=== PATIENT | male | born 1975 | race Caucasian/White ===

== ENCOUNTER 2018-09-29 14:34 | Emergency (ER) | payer OTHER ==
[~2018-09-29] VITALS: Ht 182.9 cm; Wt 68.0 kg
[2018-09-29] MEDS ORDERED: IV NORMAL SALINE 1,000ML 1,000 ML IV SCH (14:55)
--- NOTE | 2018-09-29 15:03 | PHYS DOC ---
Past History Past Medical History: No Pertinent History Past Surgical History: No Surgical History Smoking: Cigarettes Additional Smoking Information: 1 PPD Alcohol Use: Heavy Drug Use: None Adult General Chief Complaint Chief Complaint: nausea and vomiting and abdominal pain [facility] HPI Patient is a 43 year old male who presents with complaining of abdominal pain and nausea and vomiting and diarrhea. Patient complaining of episodes of nausea and vomiting with upper abdominal pain for 2 months and states he usually gets one or 2 episodes of vomiting in the morning. Patient complaining of intermittent episodes of tightness in the upper abdomen for the same time and he states he has had 4 episodes of diarrhea for the last few days. Patient complaining of generalized weakness without fever and chills, chest pain, shortness of breath, urinary symptom. Patient states he drinks 4-5 shots of hard daycare every day for the last 2 years and has had alcohol problem since age of 22s. Patient denies melena and hematemesis and states he lost 3 pounds since his last emergency room visit one week ago. Patient states he was seen by his primary care physician and has appointment for CT of abdomen and pelvis on October 18 and seen at [facility] emergency without and and answering his questions about the reason of his pain and decided to come to emergency room to find out that what was wrong with him. Patient states he had 2 shots of alcohol today. Review of Systems Review of Systems Constitutional: Denies fever or chills [] Eyes: Denies change in visual acuity, redness, or eye pain [] HENT: Denies nasal congestion or sore throat [] Respiratory: Denies cough or shortness of breath [] Cardiovascular: No additional information not addressed in [facility] [] GI: Reports abdominal pain, nausea, vomiting, diarrhea [] : Denies dysuria or hematuria [] Musculoskeletal: Denies back pain or joint pain [] Integument: Denies rash or skin lesions [] Neurologic: Denies headache, focal weakness or sensory changes [] Endocrine: Denies polyuria or polydipsia [] All other systems were reviewed and found to be within normal limits, except as documented in this note. Physical Exam Physical Exam Constitutional: Well developed, well nourished, mild distress, non-toxic appearance, smell of alcohol on breath. [] HENT: Normocephalic, atraumatic, oropharynx moist. Eyes: PERRLA, EOMI, conjunctiva normal, no discharge. [] Neck: Normal range of motion, no tenderness, supple, no stridor. [] Cardiovascular:Heart rate regular rhythm, no murmur [] Lungs & Thorax: Bilateral breath sounds clear to auscultation [] Abdomen: Bowel sounds normal, soft, no tenderness, no masses, no pulsatile masses. [] Skin: Warm, dry, no erythema, no rash. [] Back: No tenderness, no CVA tenderness. [] Extremities: No tenderness, no cyanosis, no clubbing, ROM intact, no edema. [] Neurologic: Alert and oriented X 3, normal motor function, normal sensory function, no focal deficits noted. [] Psychologic: Affect normal, judgement normal, mood normal. [] Current Patient Data Vital Signs Vital Signs Date Time Temp Pulse Resp B/P (MAP) Pulse Ox O2 Delivery O2 Flow Rate FiO2 09/29/18 14:38 97.8 112 20 90 Room Air EKG EKG [] Radiology/Procedures Radiology/Procedures [] Course & Med Decision Making Course & Med Decision Making Pertinent Labs reviewed. (See chart for details) Evaluation of patient in ER showed 43-year-old male patient with multiple chronic complaint and history of alcohol abuse. Patient had blood alcohol of 238 with unremarkable labs except for elevation of liver function tests. Patient had multiple visits in other places because of the same problem. Patient has appointment for CT of abdomen and pelvis. Patient instructed to follow up with his appointment and stop drinking alcohol. Dragon Disclaimer Dragon Disclaimer This electronic medical record was generated, in whole or in part, using a voice recognition dictation system. Departure Departure: Impression: Primary Impression: Chronic liver disease Additional Impressions: Chronic alcoholic liver disease Chronic abdominal pain Nausea and vomiting Tobacco abuse Tobacco abuse counseling Alcohol abuse Disposition: HOME, SELF-CARE (at) Condition: STABLE Patient Instructions: Alcoholic Liver Disease, [id number], Chronic Pain, Nausea and Vomiting, Smoking Cessation, Tips For Success Additional Instructions: Drink plenty of liquids Follow-up with your primary care physician in 3-5 days Return to ER if not getting better Follow-up with your scheduled outpatient CT of abdomen and pelvis Scripts Ondansetron Hcl (ZOFRAN) 4 Mg Tablet 1 TAB PO Q6HRS for nausea and vomiting, #12 TAB Prov: MEG MARROQUNI MD 09/29/18 Problem Qualifiers Additional Impressions: Nausea and vomiting Vomiting type: unspecified MEG MARROQUIN MD Sep 29, 2018 15:03
[2018-09-29 15:06] LABS: BASO # 0.2 x10^3/uL (0.0-0.2); BASO % 2 % (0-3); EOS # 0.2 x10^3/uL (0.0-0.7); EOS % 2 % (0-3); HEMATOCRIT 50.1 % (39.0-53.0); HEMOGLOBIN 16.9 g/dL (13.0-17.5); LYMPH # 2.5 x10^3/uL (1.0-4.8); LYMPH % 26 % (24-48); MEAN CORPUSCULAR HEMOGLOBIN 34 pg (25-35); MEAN CORPUSCULAR HGB CONC 34 g/dL (31-37); MEAN CORPUSCULAR VOLUME 99 fL (79-100); MONO # 0.9 x10^3/uL (0.0-1.1); MONO % 9 % (0-9); NEUT # 5.9 x10^3uL (1.8-7.7); NEUT % 61 % (31-73); PLATELET COUNT 117 x10^3/uL (140-400); RED BLOOD COUNT 5.04 x10^6/uL (4.30-5.70); RED CELL DISTRIBUTION WIDTH 14.9 % (11.5-14.5); WHITE BLOOD COUNT 9.7 x10^3/uL (4.0-11.0)
[2018-09-29 15:16] LABS: ALBUMIN 3.8 g/dL (3.4-5.0); ALBUMIN/GLOBULIN RATIO 1.1 (1.0-1.7); CALCIUM 8.7 mg/dL (8.5-10.1); CREATININE 0.6 mg/dL (0.7-1.3); GFR 148.5; POTASSIUM 3.7 mmol/L (3.5-5.1); TOTAL BILIRUBIN 0.6 mg/dL (0.2-1.0); TOTAL PROTEIN 7.2 g/dL (6.4-8.2)
[2018-09-29] MEDS ORDERED: FAMOTIDINE 20 MG/2 ML VIAL IVP ONE (15:30)
[2018-09-29] MEDS ORDERED: ONDANSETRON PF 4 MG/2 ML VIAL. IV ONE (15:30)
[2018-09-29 16:54] LABS: BARBITURATES NEG (NEG); BENZODIAZEPINES NEG (NEG); CANNABINOIDS NEG (NEG); COCAINE NEG (NEG); METHADONE NEG (NEG); OPIATES NEG (NEG); PHENCYCLIDINE NEG (NEG)
[2018-09-29 17:01] LABS: AMPHETAMINE/METHAMPHETAMINE NEG (NEG)
[2018-09-29 17:07] VITALS: BP 129/79
[2018-09-29 17:07] LABS: BILIRUBIN,URINE NEG (NEG); CLARITY,URINE CLEAR; COLOR,URINE YELLOW; GLUCOSE,URINE NEG (NEG)
[2018-09-29 17:08] LABS: BACTERIA,URINE FEW /HPF (0-FEW); NITRITE,URINE NEG (NEG); SQUAMOUS EPITHELIAL CELL,UR FEW /LPF; UROBILINOGEN,URINE 0.2 mg/dL (0.2 mg/dL)
[2018-09-29] MEDS ORDERED: ONDA4TAB7 PO (17:13)
== END 2018-09-29 17:22 | disposition home or self-care (01) ==
LOC: ER 14:34
DX: K70.9 Alcoholic liver disease, unspecified (principal); G89.29 Other chronic pain; R10.9 Unspecified abdominal pain; R11.2 Nausea with vomiting, unspecified; F17.210 Nicotine dependence, cigarettes, uncomplicated; F10.10 Alcohol abuse, uncomplicated; Z71.6 Tobacco abuse counseling; Y90.8 Blood alcohol level of 240 mg/100 ml or more
CPT/HCPCS: 36415; 80053; 80307; 81001; 83690; 85025; 85610; 85730; 96374; 96375; 99284; G0480; J2405; J3490; J7030

== ENCOUNTER 2020-05-20 15:54 | Inpatient (IN) | payer SELFPAY ==
[~2020-05-20] VITALS: Ht 182.9 cm; Wt 64.5 kg
[~2020-05-20 15:54] MED LIST: ONDA4TAB7 PO
--- NOTE | 2020-05-20 16:17 | PHYS DOC ---
Past History Past Medical History: No Pertinent History (JIMMY KATHLEEN MD) Past Surgical History: No Surgical History (JIMMY KATHLEEN MD) Smoking: Cigarettes Alcohol Use: Heavy Drug Use: None (JIMMY KATHLEEN MD) General Adult EDM: Chief Complaint: LOSS OF CONSCIOUSNESS HPI: HPI: Patient is a 44-year-old Male who presents for evaluation following an episode of loss of consciousness. Patient has a history of alcohol withdrawal seizures and last drink was yesterday but he is also been sick for last week with subjective fevers chills and a cough. Patient had an episode where he lost consciousness today and did not know whether he there was seizure activity. Patient complains of head and neck pain where he hit his head. Patient also has had nausea vomiting and diarrhea as well as some diffuse abdominal discomfort. Patient also complains of cough and shortness of breath. (JIMMY KATHLEEN MD) Review of Systems: Review of Systems: Constitutional: Complains of subjective fevers and chills Eyes: Denies change in visual acuity HENT: Denies nasal congestion or sore throat Respiratory: Complains of cough and shortness of breath Cardiovascular: Denies chest pain or edema GI: Complains of abdominal pain, nausea, vomiting, diarrhea : Denies dysuria Musculoskeletal: Denies back pain but has neck pain Integument: Denies rash Neurologic: Complains of headache but no focal weakness or sensory changes Endocrine: Denies polyuria or polydipsia Lymphatic: Denies swollen glands Psychiatric: Denies depression or anxiety (JIMMY KATHLEEN MD) Current Medications: Current Meds: Current Medications Multivitamins/ Minerals 10 ml/ Folic Acid 1 mg/ Thiamine HCl 100 mg/Lactated Ringer's 1,011.3 ml @ 1,011.3 mls/hr 1X ONCE IV Last administered on 05/20/20at 17:24; Start 05/20/20 at 17:00; Stop 05/20/20 at 17:59 Lorazepam (Ativan Inj) 2 mg 1X ONCE IVP ; Start 05/20/20 at 17:45; Stop 05/20/20 at 17:46 Piperacillin Sod/ Tazobactam Sod 3.375 gm/Sodium Chloride 50 ml @ 100 mls/hr 1X ONCE IV ; Start 05/20/20 at 17:45; Stop 05/20/20 at 18:14 Iohexol (Omnipaque 350 Mg/ml) 100 ml 1X ONCE IV ; Start 05/20/20 at 17:45; Stop 05/20/20 at 17:46; Status UNV Sodium Chloride 50 ml @ As Directed STK-MED ONCE .ROUTE ; Start 05/20/20 at 17:39; Stop 05/20/20 at 17:39; Status DC Piperacillin Sod/ Tazobactam Sod (Zosyn) 3.375 gm STK-MED ONCE IV ; Start 05/20/20 at 17:39; Stop 05/20/20 at 17:39; Status DC Active Scripts Active Zofran (Ondansetron Hcl) 4 Mg Tablet 1 Tab PO Q6HRS (JIMMY KATHLEEN MD) Allergies: Allergies: Allergies Coded Allergies Type Severity Reaction Last Updated Verified No Known Allergies Allergy Unknown 05/20/20 Yes (JIMMY KATHLEEN MD) Physical Exam: PE: Constitutional: Well developed, well nourished, no acute distress, non-toxic appearance. [] HENT: Normocephalic, atraumatic, bilateral external ears normal, no trismus nose normal. [] Eyes: PERRLA, EOMI, conjunctiva normal, no discharge. [] Neck: Mild posterior tenderness, supple, no stridor. [] Cardiovascular: Tachycardia, peripheral pulse intact, cap refill is brisk Lungs & Thorax: Diminished breath sounds bilaterally Abdomen soft with mild diffuse tenderness without guarding or rebound, no masses, no pulsatile masses. [] Skin: Warm, dry, no erythema, no rash. [] Back: No tenderness, no CVA tenderness. [] Extremities: No tenderness, no cyanosis, no clubbing, ROM intact, no edema. [] Neurologic: Alert and oriented X 3, normal motor function, normal sensory function, no focal deficits noted. [] Psychologic: Affect normal, judgement normal, mood normal. [] (JIMMY KATHLEEN MD) Current Patient Data: Labs: Laboratory Tests Test 05/20/20 16:15 White Blood Count 5.1 x10^3/uL Red Blood Count 4.48 x10^6/uL Hemoglobin 15.4 g/dL Hematocrit 46.4 % Mean Corpuscular Volume 104 fL Mean Corpuscular Hemoglobin 34 pg Mean Corpuscular Hemoglobin Concent 33 g/dL Red Cell Distribution Width 15.5 % Platelet Count 65 x10^3/uL Neutrophils (%) (Auto) 69 % Lymphocytes (%) (Auto) 16 % Monocytes (%) (Auto) 13 % Eosinophils (%) (Auto) 2 % Basophils (%) (Auto) 1 % Neutrophils # (Auto) 3.5 x10^3uL Lymphocytes # (Auto) 0.8 x10^3/uL Monocytes # (Auto) 0.6 x10^3/uL Eosinophils # (Auto) 0.1 x10^3/uL Basophils # (Auto) 0.0 x10^3/uL D-Dimer (Haylie) 2.89 mg/L Sodium Level 139 mmol/L Potassium Level 3.6 mmol/L Chloride Level 96 mmol/L Carbon Dioxide Level 20 mmol/L Anion Gap 23 Blood Urea Nitrogen 14 mg/dL Creatinine 0.7 mg/dL Estimated GFR (Cockcroft-Gault) 123.7 BUN/Creatinine Ratio 20 Glucose Level 68 mg/dL Lactic Acid Level 6.6 mmol/L Calcium Level 8.5 mg/dL Total Bilirubin 0.4 mg/dL Aspartate Amino Transf (AST/SGOT) 143 U/L Alanine Aminotransferase (ALT/SGPT) 63 U/L Alkaline Phosphatase 66 U/L Lactate Dehydrogenase 170 U/L Troponin I Quantitative < 0.017 ng/mL C-Reactive Protein 4.7 mg/L Total Protein 6.7 g/dL Albumin 3.4 g/dL Albumin/Globulin Ratio 1.0 Lipase 157 U/L Ethyl Alcohol Level 163 mg/dL Current Medications Medications (Trade) Dose Ordered Sig/Donnie Route PRN Reason Start Time Stop Time Status Last Admin Dose Admin Multivitamins/ Minerals 10 ml/ Folic Acid 1 mg/ Thiamine HCl 100 mg/Lactated Ringer's 1,011.3 ml @ 1,011.3 mls/hr 1X ONCE IV 05/20/20 17:00 05/20/20 17:59 05/20/20 17:24 Lorazepam (Ativan Inj) 2 mg 1X ONCE IVP 05/20/20 17:45 05/20/20 17:46 Piperacillin Sod/ Tazobactam Sod 3.375 gm/Sodium Chloride 50 ml @ 100 mls/hr 1X ONCE IV 05/20/20 17:45 05/20/20 18:14 Iohexol (Omnipaque 350 Mg/ml) 100 ml 1X ONCE IV 05/20/20 17:45 05/20/20 17:46 UNV Sodium Chloride 50 ml @ As Directed STK-MED ONCE .ROUTE 05/20/20 17:39 05/20/20 17:39 DC Piperacillin Sod/ Tazobactam Sod (Zosyn) 3.375 gm STK-MED ONCE IV 05/20/20 17:39 05/20/20 17:39 DC Vital Signs: Vital Signs Date Time Temp Pulse Resp B/P (MAP) Pulse Ox O2 Delivery O2 Flow Rate FiO2 05/20/20 15:54 98.1 98 14 142/93 (109) 93 Room Air (JIMMY KATHLEEN MD) EKG: EKG: [] EKG interpreted by me normal sinus rhythm with rate of 99 normal axis normal intervals normal ST segments (JIMMY KATHLEEN MD) Radiology/Procedures: Radiology/Procedures: [][place] [address] IMAGING REPORT Signed PATIENT: FRANK SALINAS ACCOUNT: [id number] : 1975 LOCATION: ER AGE: 44 SEX: M EXAM STATUS: REG ER ORD. PHYSICIAN: JIMMY KATHLEEN MD REASON: syncope, head injury PROCEDURE: CT HEAD AND CERVICAL SPINE WO Exam: CT head and cervical spine INDICATION: Syncope, head injury TECHNIQUE: Sequential axial images through the head and cervical spine were obtained without the administration of IV contrast. Comparisons: None FINDINGS: Head: No focal parenchymal lesion or hemorrhage is identified. There is no midline shift or sulcal effacement. No acute vascular territory infarction is identified. Ryan-white distinction is preserved. The ventricular system is within normal limits without compression hydrocephalus. The basal cisterns are well maintained. The visualized portions of the paranasal sinuses and mastoid air cells are well-pneumatized. No acute fractures. Cervical spine: Vertebral body heights and alignment are well-maintained. Fracture to the cervical spine is not identified. Mild multilevel spondylotic change in cervical spine with degenerative disc disease greatest at C4-C5 and C5-C6. Visualized paraspinal soft tissues are unremarkable. IMPRESSION: 1. No acute intracranial abnormality. 2. Negative CT C-spine for acute traumatic injury. Exposure: One or more of the following in the visualized dose reduction techniques were utilized for this examination: 1. Automated exposure control 2. Adjustment of the MA and/or KV according to patient size Use of iterative of reconstructive technique Electronically signed by: Jaci Cowart MD (05/20/2020 5:04 PM) [facility] DICTATED AND SIGNED BY: JACI COWART MD DATE: 05/20/20 1704 CC: JIMMY KATHLEEN MD; JESUS HERNANDEZ MD ~ [address] [address] IMAGING REPORT Signed PATIENT: FRANK SALINAS ACCOUNT: [id number] : 1975 LOCATION: ER AGE: 44 SEX: M EXAM STATUS: PRE ER ORD. PHYSICIAN: JIMMY KATHLEEN MD REASON: syncope, cough, shortness of breath, hx smoker PROCEDURE: PORTABLE CHEST 1V PORTABLE CHEST 1V Clinical History: Reason: syncope, cough, shortness of breath, hx smoker / Spl. Instructions: / History: Technique: AP view of the chest was obtained at 05/20/2020 4:08 PM. Comparison: None. Findings: The cardiomediastinal silhouette is normal. The pulmonary vasculature is normal. The lungs and pleural margins are clear. Impression: No evidence of an acute cardiopulmonary process. Electronically signed by: Frank Brown III, MD (05/20/2020 4:47 PM) [facility] DICTATED AND SIGNED BY: FRANK BROWN III, MD DATE: 05/20/20 1647 CC: JIMMY KATHLEEN MD; JESUS HERNANDEZ MD ~ (JIMMY KATHLEEN MD) Heart Score: Risk Factors: Risk Factors: DM, Current or recent (<one month) smoker, HTN, HLP, family history of CAD, obesity. Risk Scores: Score 0 - 3: 2.5% MACE over next 6 weeks - Discharge Home Score 4 - 6: 20.3% MACE over next 6 weeks - Admit for Clinical Observation Score 7 - 10: 72.7% MACE over next 6 weeks - Early Invasive Strategies (JIMMY KATHLEEN MD) Course & Med Decision Making: Course & Med Decision Making Pertinent Labs and Imaging studies reviewed. (See chart for details) [] 44-year-old male presents with an episode of altered mental status which was due to either syncope or seizure. Patient also has had symptoms concerning for COVID-19 recently and has some abdominal pain. Patient has elevated lactic acid at 6.6, this could be due to seizure or infectious process. Patient will be given fluids via banana bag due to his alcoholism and a CT angiogram of the chest has been ordered due to his elevated D-dimer and I will continue to the abdomen pelvis to rule out serious intra-abdominal pathology. Patient underwent a CT of the head and neck due to seizure versus syncope and also neck pain. Patient was signed over to Dr. Gillette with follow-up on the CT of the chest abdomen pelvis and disposition pending. (JIMMY KATHLEEN MD) Course & Med Decision Making Assumed care of patient from prior emergency room physician. At checkout CT chest and pelvis was pending. There is no signs of bowel necrosis at this time. Lactic did increase and fluids were increased. This may be due to his alcohol withdrawal. Is also possible that he is coronavirus. He will be admitted to his primary care physician for alcohol withdrawal with possible PUI. (JOSE GILLETTE MD) Dragon Disclaimer: Dragon Disclaimer: This electronic medical record was generated, in whole or in part, using a voice recognition dictation system. (JIMMY KATHLEEN MD) Departure Departure: Impression: Primary Impression: Syncope Additional Impressions: Alcohol intoxication Dyspnea Elevated d-dimer Abdominal pain Lactic acidosis Disposition: ADMITTED INPT THIS HOSP Condition: STABLE Referrals: JESUS HERNANDEZ MD (PCP) JIMMY KATHLEEN MD May 20, 2020 16:16 JOSE GILLETTE MD May 20, 2020 22:56
--- NOTE | 2020-05-20 16:50 | RAD ---
PORTABLE CHEST 1V Clinical History: Reason: syncope, cough, shortness of breath, hx smoker / Spl. Instructions: / History: Technique: AP view of the chest was obtained at 05/20/2020 4:08 PM. Comparison: None. Findings: The cardiomediastinal silhouette is normal. The pulmonary vasculature is normal. The lungs and pleural margins are clear. Impression: No evidence of an acute cardiopulmonary process. Electronically signed by: Cuong Dewitt III, MD (05/20/2020 4:47 PM) [facility]
[2020-05-20 16:51] LABS: BASO % 1 % (0-3); EOS # 0.1 x10^3/uL (0.0-0.7); EOS % 2 % (0-3); HEMATOCRIT 46.4 % (39.0-53.0); HEMOGLOBIN 15.4 g/dL (13.0-17.5); LYMPH # 0.8 x10^3/uL (1.0-4.8); LYMPH % 16 % (24-48); MEAN CORPUSCULAR HEMOGLOBIN 34 pg (25-35); MEAN CORPUSCULAR HGB CONC 33 g/dL (31-37); MEAN CORPUSCULAR VOLUME 104 fL (79-100); MONO # 0.6 x10^3/uL (0.0-1.1); MONO % 13 % (0-9); NEUT # 3.5 x10^3uL (1.8-7.7); NEUT % 69 % (31-73); PLATELET COUNT 65 x10^3/uL (140-400); RED BLOOD COUNT 4.48 x10^6/uL (4.30-5.70); RED CELL DISTRIBUTION WIDTH 15.5 % (11.5-14.5); WHITE BLOOD COUNT 5.1 x10^3/uL (4.0-11.0)
[2020-05-20 16:52] LABS: CALCIUM 8.5 mg/dL (8.5-10.1); CREATININE 0.7 mg/dL (0.7-1.3); GFR 123.7; POTASSIUM 3.6 mmol/L (3.5-5.1)
[2020-05-20 16:58] LABS: ALBUMIN 3.4 g/dL (3.4-5.0); C REACTIVE PROTEIN 4.7 mg/L (0-3.3); TOTAL BILIRUBIN 0.4 mg/dL (0.2-1.0); TOTAL PROTEIN 6.7 g/dL (6.4-8.2)
[2020-05-20] MEDS ORDERED: MVI, ADULT NO.4 WITH VIT K 10 ML, FOLIC ACID INJ 1 MG, THIAMINE INJ 100 MG in IV RINGER... IV ONE (17:00)
--- NOTE | 2020-05-20 17:07 | RAD ---
Exam: CT head and cervical spine INDICATION: Syncope, head injury TECHNIQUE: Sequential axial images through the head and cervical spine were obtained without the administration of IV contrast. Comparisons: None FINDINGS: Head: No focal parenchymal lesion or hemorrhage is identified. There is no midline shift or sulcal effacement. No acute vascular territory infarction is identified. Ryan-white distinction is preserved. The ventricular system is within normal limits without compression hydrocephalus. The basal cisterns are well maintained. The visualized portions of the paranasal sinuses and mastoid air cells are well-pneumatized. No acute fractures. Cervical spine: Vertebral body heights and alignment are well-maintained. Fracture to the cervical spine is not identified. Mild multilevel spondylotic change in cervical spine with degenerative disc disease greatest at C4-C5 and C5-C6. Visualized paraspinal soft tissues are unremarkable. IMPRESSION: 1. No acute intracranial abnormality. 2. Negative CT C-spine for acute traumatic injury. Exposure: One or more of the following in the visualized dose reduction techniques were utilized for this examination: 1. Automated exposure control 2. Adjustment of the MA and/or KV according to patient size Use of iterative of reconstructive technique Electronically signed by: Jaci Hinojosa MD (05/20/2020 5:04 PM) [facility]
--- NOTE | 2020-05-20 17:33 | EKG ---
[address] [address] Test Date: 2020-05-20 Test Time: 16:11:27 Pat Name: FRANK SALINAS Department: Room: Gender: M Serials Librarian: CHRISTINE : 1975 Requested By: JIMMY KATHLEEN Order Number: [id number] Reading MD: Measurements Intervals [place] Rate: 99 P: 62 MO: 142 QRS: 65 QRSD: 80 T: 60 QT: 348 QTc: 452 Interpretive Statements SINUS RHYTHM NORMAL ECG RI6.02 No previous ECG available for comparison
[2020-05-20] MEDS ORDERED: IV NORMAL SALINE 50ML 50 ML ONE (17:39)
[2020-05-20] MEDS ORDERED: PIPERACILLIN/TAZOBACTAM 3.375 GM VIAL IV ONE (17:39)
[2020-05-20] MEDS ORDERED: PIPERACILLIN/TAZOBACTAM 3.375 GM in IV NORMAL SALINE 50ML 50 ML IV ONE (17:45)
[2020-05-20] MEDS ORDERED: IOHEXOL 350 MG/ML 100 ML VIAL. IV ONE (18:00)
[2020-05-20] MEDS ORDERED: CONTRAST GIVEN. MC PRN (18:00)
--- NOTE | 2020-05-20 18:40 | RAD ---
Exam: CT of chest, abdomen and pelvis with contrast INDICATION: Syncope, cough, shortness of air TECHNIQUE: Sequential axial images through the chest, abdomen and pelvis obtained following the administration of 100 mL of Omni 350 IV contrast. Sagittal and coronal reformatted images were reconstructed from the axial data and reviewed. 3-D reformatted images were reconstructed from the axial data and reviewed. Comparisons: Chest x-ray same day FINDINGS: Visualized portions of the thyroid are unremarkable. No enlarged mediastinal lymph nodes are identified. Heart size is normal. No pericardial effusion. Thoracic aorta has a normal course and caliber. Pulmonary artery is not enlarged. No pulmonary embolus identified within the main, lobar or segmental pulmonary arteries. Airways are patent. Mild bronchial wall thickening noted centrally. No consolidation or pneumothorax. Innumerable micronodules diffusely present throughout the lungs. No pleural effusion or thickening. Diffuse hepatic steatosis. Spleen, pancreas and adrenals are unremarkable. Gallbladder is nondistended. Kidneys demonstrate symmetric enhancement. No perinephric inflammation or hydronephrosis. No renal or ureteral calculi are identified. Bladder is partially distended and not well evaluated. Prostate is not enlarged. Scattered diverticulosis at the sigmoid colon without evidence of acute diverticulitis. Appendix is normal. No free intra-abdominal air or fluid. No obstruction. Abdominal aorta aorta has a normal course and caliber. Abdominal vasculature is patent. No enlarged abdominal lymph nodes are identified. No suspicious osseous lesions or acute fractures. IMPRESSION: 1. Subtle diffuse micronodularity throughout the lungs. This is nonspecific in etiology and may simply represent improved resolution of small vessels versus a atypical infectious or inflammatory process. Short-term follow-up imaging is recommended to reassess. 2. No pulmonary embolus identified within the main, lobar or segmental pulmonary arteries. 3. Diverticulosis without evidence of acute diverticulitis. 4. Diffuse hepatic steatosis. Exposure: One or more of the following in the visualized dose reduction techniques were utilized for this examination: 1. Automated exposure control 2. Adjustment of the MA and/or KV according to patient size 3. Use of iterative of reconstructive technique Electronically signed by: Jaci Hinojosa MD (05/20/2020 6:37 PM) [facility]
[2020-05-20] MEDS ORDERED: IV NORMAL SALINE 1,000ML 1,000 ML IV ONE ×2 (20:30→21:15)
[2020-05-20] MEDS ORDERED: chlordiazePOXIDE HCL 25 MG CAPSULE PO ONE (20:45)
[2020-05-20] MEDS ORDERED: NORMAL SALINE IV SCH (21:33)
--- NOTE | 2020-05-20 21:40 | NUR ---
ADMISSION PT ARRIVED TO ICU BED 5 VIA [facility], ACCOMPANIED BY [facility] AND ED STAFF. PT TRANSFERRED FROM [facility] TO BED X2 ASSIST. PT HERE FOR ETOH WITHDRAWAL AND COVID PUI. PT A/OX3, FLAT AFFECT. PT REPORTS HIS LAST DRINK WAS TUESDAY EVENING AND HE FELL THIS AFTERNOON WHILE ATTEMPTING TO GET UP TO USE THE RESTROOM. FALL WAS UNWITNESSED AND PT BELIEVES HE LOST CONSCIOUSNESS AND IS UNSURE IF HE HAD A SEIZURE. PT REPORTS HX OF DETOX SEIZURES. BED RAILS PADDED FOR SAFETY. PT ALSO REPORTS FEVER/CHILLS AND COUGH X1 WEEK. TESTED FOR COVID BASED ON SYMPTOMS, SWAB OBTAINED IN ED. PT IN CONTACT AND AIRBORNE ISOLATION PENDING RESULT. PT A POOR HISTORIAN. DECLINES FAMILY NOTIFICATION OF ADMISSION. PT RESIDES AT HOME WITH A ROOMMATE. PT HAS A LARGE BACKPACK FULL OF CLOTHING AND PERSONAL BELONGINGS, INVENTORIED AND LEFT AT THE BEDSIDE WITH THE PT. LOVENOX FOR VTE. BANANA BAG INFUSING. POC DISCUSSED WITH PT, V/U. CALL LIGHT IN REACH.
[2020-05-20] MEDS ORDERED: IV NORMAL SALINE 1,000ML 1,000 ML IV SCH (21:45)
--- NOTE | 2020-05-20 21:45 | NUR ---
POSITIVE SEVERE SEPSIS SCREEN DR. HERNANDEZ NOTIFIED OF POSITIVE SCREEN. PT WITH LACTIC ACID OF 6.6 AND 8.7 UPON REPEAT. MD ORDERED FOR WEIGHT BASED FLUID BOLUS 30ML/KG, ZOSYN AND ZITHROMAX. BLOOD CULTURES WERE DRAWN IN ED, PENDING. WILL REPEAT LACTIC ACID A THIRD TIME WITH MORNING LABS.
[2020-05-20] MEDS ORDERED: MAG HYDROX/AL HYDROX/SIMETH 30 ML ORAL.SUSP PO PRN (22:00)
[2020-05-20] MEDS ORDERED: PIP/TAZO PER PHARMACY MC PRN (22:00)
[2020-05-20] MEDS ORDERED: PIPERACILLIN/TAZOBACTAM 4.5 GM in IV NORMAL SALINE 50ML 50 ML IV SCH (22:00)
[2020-05-20 22:19] VITALS: BP 131/89
[2020-05-20] MEDS ORDERED: AZITHROMYCIN 250 MG TABLET. PO ONE (22:30)
[2020-05-20] MEDS ORDERED: ENOXAPARIN 40 MG/0.4 ML SYRINGE. SQ ONE (22:30)
[2020-05-20] MEDS ORDERED: THIAMINE 100 MG TABLET. PO ONE (22:30)
[2020-05-20] MEDS: PIPERACILLIN/TAZOBACTAM 3.375 GM in IV NORMAL SALINE 50ML 50 ML IV SCH (23:07)
[2020-05-20 23:19] VITALS: BP 131/76
[2020-05-21] VITALS (13 sets, daily range): BP systolic 116–152; BP diastolic 44–97
[2020-05-21] MEDS: IV 1/2 NORMAL SALINE 1,000 ML IV SCH ×2 (01:20→11:03)
[2020-05-21] MEDS ORDERED: LORA-254 PO (04:57)
[2020-05-21] MEDS: PIPERACILLIN/TAZOBACTAM 3.375 GM in IV NORMAL SALINE 50ML 50 ML IV SCH ×2 (05:22→12:57)
[2020-05-21 06:06] LABS: BASO # 0.1 x10^3/uL (0.0-0.2); BASO % 1 % (0-3); EOS # 0.2 x10^3/uL (0.0-0.7); EOS % 3 % (0-3); HEMATOCRIT 38.2 % (39.0-53.0); HEMOGLOBIN 12.8 g/dL (13.0-17.5); LYMPH # 1.3 x10^3/uL (1.0-4.8); LYMPH % 19 % (24-48); MEAN CORPUSCULAR HEMOGLOBIN 34 pg (25-35); MEAN CORPUSCULAR HGB CONC 34 g/dL (31-37); MEAN CORPUSCULAR VOLUME 103 fL (79-100); MONO % 15 % (0-9); NEUT # 4.1 x10^3uL (1.8-7.7); NEUT % 62 % (31-73); PLATELET COUNT 50 x10^3/uL (140-400); RED BLOOD COUNT 3.73 x10^6/uL (4.30-5.70); RED CELL DISTRIBUTION WIDTH 15.2 % (11.5-14.5); WHITE BLOOD COUNT 6.5 x10^3/uL (4.0-11.0)
[2020-05-21 06:17] LABS: ALBUMIN 2.9 g/dL (3.4-5.0); CALCIUM 8.2 mg/dL (8.5-10.1); CREATININE 0.6 mg/dL (0.7-1.3); DIRECT BILIRUBIN 0.3 mg/dL (0.0-0.2); GFR 147.8; POTASSIUM 3.9 mmol/L (3.5-5.1); TOTAL BILIRUBIN 0.6 mg/dL (0.2-1.0); TOTAL PROTEIN 5.6 g/dL (6.4-8.2)
--- NOTE | 2020-05-21 06:45 | NUR ---
Pt c/o throbbing headache this AM. Rates 9:10. Pt does not have anything ordered for pain. Calls placed to Dr. Santizo, L/M x2. Awaiting call back.
[2020-05-21 06:53] LABS: PLT ESTIMATE DECREASED (ADEQUATE)
[2020-05-21 06:54] LABS: TARGET CELLS OCC
[2020-05-21 06:56] LABS: ANISOCYTOSIS SLIGHT; POLYCHROMASIA SLIGHT
--- NOTE | 2020-05-21 07:07 | NUR ---
Call back received from Dr. Santizo. New orders received for pain and anxiety.
[2020-05-21] MEDS ORDERED: ACETAMINOPHEN 325 MG TABLET PO PRN (07:15)
[2020-05-21] MEDS ORDERED: PANTOPRAZOLE 40 MG TABLET. PO SCH (07:30)
--- NOTE | 2020-05-21 08:37 | NUR ---
IP: patient PUI for COVID-19, requires contact and airborne precautions.
[2020-05-21] MEDS: chlordiazePOXIDE HCL 25 MG CAPSULE PO SCH ×2 (08:48→13:39)
[2020-05-21] MEDS ORDERED: cloNIDine TTS-1 1 PATCH PATCH TD SCH (09:00)
[2020-05-21] MEDS ORDERED: NICOTINE 21MG PATCH. TD SCH (09:00)
[2020-05-21] MEDS ORDERED: CHLO25CA9 PO (12:48)
[2020-05-21] MEDS ORDERED: Nicotine 21MG Patch TD (12:48)
[2020-05-21] MEDS ORDERED: FLU VACC QS 2020-21(6MOS+)/PF 0.5 ML SYRINGE. VAX IM ONE (13:15)
--- NOTE | 2020-05-21 14:16 | NUR ---
NURSING NOTE: DISCHARGE PT DISCHARGED VIA AMBULATION. PT TOOK TAXI HOME. WRITTEN AND VERBAL DISCHARGE INSTRUCTIONS GIVEN, VERBAL UNDERSTANDING RECEIVED. PT GIVEN RX FOR NICOTINE PATCH AND LIBRIUM 25MG. PT HAD NO QUESTIONS. GIL CAMACHO
--- NOTE | 2020-05-21 17:51 | HP ---
ADMIT DATE: 05/20/2020 HISTORY OF PRESENT ILLNESS: A 44-year-old male came in through the Emergency Room, apparently he was quite liberated and alcohol level greater than 300. He has had a previous history of alcohol withdrawal seizures and patient notes he had a loss of consciousness from drinking so much. The patient noted he also had some nausea, vomiting and diarrhea, diffuse abdominal discomfort. He was seen initially in the Emergency Room where a thorough workup had been performed on the gentleman and the patient's CT scan showed some diverticulosis and hepatic steatosis, but otherwise basically unremarkable there. The patient was admitted for detox of his alcohol. PAST MEDICAL HISTORY: Cerebral hematoma, alcohol withdrawal, COPD, Tse's esophagus. SOCIAL HISTORY: He drinks about a pint of hard liquor daily, smokes a pack of cigarettes daily and influenza last fall. ALLERGIES: No known allergies. FAMILY HISTORY: Unremarkable. The patient's social history is as noted above and he is a full code. REVIEW OF SYSTEMS: The patient does not feel good. He is nauseated, diarrhea. Denies any melena, hematochezia, hematemesis. Denies chest pain, shortness of breath. Neurologically stable and he has not had any further seizure activity. PHYSICAL EXAMINATION: VITAL SIGNS: The patient's blood pressure 150/44, respiratory rate 22, blood pressure came down to 120/88, pulse 70, 98.4, and oxygen saturation at 95%. HEENT: The patient's head was atraumatic, normocephalic. Eyes: PERRLA without jaundice. The mouth and throat were normal. NECK: Supple, without JVD or thyromegaly. LUNGS: Diminished, but clear. CARDIOVASCULAR: Regular sinus rhythm. ABDOMEN: Soft, nontender. EXTREMITIES: No clubbing, cyanosis, nor edema. NEUROLOGIC: The patient at this time was alert and oriented. Speech is fluent, spontaneous, appropriate. LABORATORY DATA: White count 6.5, hemoglobin 12.8 and hematocrit 32. MCV elevated at 103. The patient's chemistries show lactic acid, but I think that was from his alcoholism and the like. COVID-19 was negative. The patient made excellent progress during his hospitalization. IMPRESSION: Alcohol withdrawal, history of seizure activity from alcohol withdrawal. We will make further evaluation on him as an outpatient. He was told to follow up and make further assessment at that time. JESUS HERNANDEZ MD DR: ANDREEA/shivam JOB#: [id number] / [id number]
[2020-05-21] MEDS ORDERED: AZITHROMYCIN 250 MG TABLET. PO SCH (21:00)
[2020-05-21] MEDS ORDERED: LACTOBACILLUS RHAMNOSUS GG 1 CAPSULE. PO SCH (21:00)
[2020-05-21] MEDS ORDERED: ENOXAPARIN 40 MG/0.4 ML SYRINGE. SQ SCH (22:00)
== END 2020-05-21 14:19 | disposition home or self-care (01) | DRG 897 ==
LOC: ER 15:54 → ICU 20:55
PROVIDERS: ADMIT Family Medicine; ATTEND Family Medicine
DX: F10.239 Alcohol dependence with withdrawal, unspecified (principal); E87.2 Acidosis; K76.0 Fatty (change of) liver, not elsewhere classified; J44.9 Chronic obstructive pulmonary disease, unspecified; K57.90 Diverticulosis of intestine, part unspecified, without perforation or abscess without bleeding; Z20.828 Contact with and (suspected) exposure to other viral communicable diseases; Z87.891 Personal history of nicotine dependence
CPT/HCPCS: 36415; 70450; 71045; 71275; 72125; 74177; 80048; 80053; 80076; 83605; 83615; 83690; 84484; 85025; 85379; 86140; 87040; 90471; 93005; 96365; 96366; 96368; 96375; G0480; J0456; J1650; J2060; J2543; J7030; J7120; Q9967; U0003; 90686; 99285-25

== ENCOUNTER 2020-05-21 19:33 | Emergency (ER) | payer SELFPAY ==
[~2020-05-21] VITALS: Ht 182.9 cm; Wt 64.5 kg
[~2020-05-21 19:33] MED LIST changes: +CHLO25CA9 PO; +LORA-254 PO; +Nicotine 21MG Patch TD
--- NOTE | 2020-05-21 19:55 | PHYS DOC ---
Past History Past Medical History: COPD, Stroke Additional Past Medical Histor: cerebral hematoma, barrets esophagus, etoh abuse Past Surgical History: No Surgical History Smoking: Cigarettes Alcohol Use: Heavy Drug Use: None General Adult EDM: Chief Complaint: MECHANICAL FALL HPI: HPI: History of pain for the patient. Patient is a 44-year-old male with a history of alcohol abuse who presents with chief complaint of falls. He states he has been drinking today. He states he has had multiple falls. He notes that he recently fell injuring his knees and left elbow. He states he is able to ambulate although it is somewhat difficult because he feels unsteady on his feet. Denies loss of consciousness. I striking his head. Denies using any blood thinners. States that he last drank approximate 30 minutes prior to arrival. Unable to estimate how much he is doing today. States he was discharged home from our facility today for alcohol detoxification. He states he has no interested alcohol detoxification today. Denies any suicidal homicida l ideations. Denies any other drug abuse. States the pain is aching in his knees and left elbow. States ambulation makes the pain worse. Pain is 4-10. No other complaints. Review of Systems: Review of Systems: Constitutional: Denies fever or chills Eyes: Denies change in visual acuity HENT: Denies nasal congestion or sore throat Respiratory: Denies cough or shortness of breath Cardiovascular: Denies chest pain or edema GI: Denies abdominal pain, nausea, vomiting, bloody stools or diarrhea : Denies dysuria Musculoskeletal: Positive for knee pain and fall. Integument: Denies rash Neurologic: Denies headache, focal weakness or sensory changes Endocrine: Denies polyuria or polydipsia Lymphatic: Denies swollen glands Psychiatric: Denies depression or anxiety Allergies: Allergies: Allergies Coded Allergies Type Severity Reaction Last Updated Verified No Known Allergies Allergy Unknown 05/20/20 Yes Physical Exam: PE: Physical Exam Trauma: Primary Survey: Airway: Intact. Speaks in normal voice and phonation. Breathing: Breath sounds are clear and equal bilaterally. Circulation: Regular rhythm, 2+ and symmetric radial, DP and PT pulses. Disability: GCS on arrival was 15. Pupils 3 mm, ERRL Exposure: Complete exposure obtained and described in detail below. Secondary Survey: General: Awake, alert, appropriate, and in no acute distress HENT: Atraumatic. TMs clear bilaterally, no hemotympanum. No periorbital tenderness or deformity. No obvious craniofacial trauma. Midface is stable. No apparent dental or tongue/oropharyngeal injury. No septal hematoma. Neck: C-spine: no midline tenderness. Without step-off, deformity, abrasion, ecchymosis, or other signs of trauma. Paraspinal musculature with no tenderness and/or hypertonicity. Eyes: Pupils 3 mm ERRL, EOMI grossly, no evidence of ocular trauma, conjunctivae normal Respiratory: CTAB without wheezing, rhonchi, or rales. No distress. Chest wall with no tenderness to palpation. No crepitus, ecchymosis, or flail segment present. Cardiovascular: Regular rhythm without murmurs noted. 2+ and symmetric radial, DP and PT pulses. GI: Soft, non-tender, non-distended Musculoskeletal: T-spine: no midline tenderness. Without step-off, deformity, abrasion, ecchymosis, or other signs of trauma. Paraspinal musculature with no tenderness and/or hypertonicity. L-spine: no midline tenderness. Without step-off, deformity, abrasion, ecchymosis, or other signs of trauma. Paraspinal musculature with no tenderness and/or hypertonicity. RUE: Active ROM, no obvious deformity, no gross weakness or sensory deficits, warm & well-perfused LUE: Active ROM, no obvious deformity, no gross weakness or sensory deficits, warm & well-perfused RLE: Active ROM, no obvious deformity, no gross weakness or sensory deficits, warm & well-perfused LLE: Active ROM, no obvious deformity, no gross weakness or sensory deficits, warm & well-perfused Integument: Without abrasions, contusions, or lacerations. Neurologic: GCS on arrival as noted above. No obvious focal motor or sensory deficits on examination. Gait not assessed due to acuity of trauma assessment. Current Patient Data: Vital Signs: Vital Signs Date Time Temp Pulse Resp B/P (MAP) Pulse Ox O2 Delivery O2 Flow Rate FiO2 05/21/20 19:34 98.6 120 18 137/91 (106) 96 Room Air EKG: EKG: [] EKG consistent with sinus tachycardia. Ventricular rate of 114 bpm. [place] normal. Intervals normal. No acute ischemic changes appreciated. Radiology/Procedures: Radiology/Procedures: [address] [address] IMAGING REPORT Signed PATIENT: FRANK SALINAS ACCOUNT: [id number] : 1975 LOCATION: ER AGE: 44 SEX: M EXAM STATUS: PRE ER ORD. PHYSICIAN: KRISHNA SALDANA DO REASON: fall PROCEDURE: KNEE BILAT 3V Exam: Bilateral knees 3 views INDICATION: Fall TECHNIQUE: Frontal, lateral and oblique views of the right and left knee Comparisons: None FINDINGS: Right knee: Bone mineralization is normal. No acute or healed fractures. Soft tissues are unremarkable. Joint spaces are well-maintained. Left knee: Bone mineralization is normal. No acute or healed fractures. Soft tissues are unremarkable. Joint spaces are well-maintained. IMPRESSION: No acute osseous abnormality of the right or left knee. Electronically signed by: Jaci Cowart MD (05/21/2020 9:49 PM) [facility] DICTATED AND SIGNED BY: JACI COWART MD DATE: 05/21/202148 CC: JESUS HERNANDEZ MD; KRISHNA SALDANA DO ~ [address] [address] IMAGING REPORT Signed PATIENT: FRANK SALINAS ACCOUNT: [id number] : 1975 LOCATION: ER AGE: 44 SEX: M EXAM STATUS: PRE ER ORD. PHYSICIAN: KRISHNA SALDANA DO REASON: fall PROCEDURE: ELBOW LEFT 2V Study: CR ELBOW LEFT 2V Indication: Fall. Comparison: None. Findings: No acute fracture, malalignment or large elbow joint effusion. Prominence of the soft tissues overlying the dorsum of the elbow most likely contusion given history. Impression: No acute osseous abnormality. Presumed contusion at the dorsum of the elbow. Electronically signed by: GILSON MÉNDEZ MD (05/21/2020 9:48 PM) [id number] DICTATED AND SIGNED BY: GILSON MÉNDEZ MD DATE: 05/21/202147 CC: JESUS HERNANDEZ MD; KRISHNA SALDANA DO ~ [address] [address] IMAGING REPORT Signed PATIENT: FRANK SALINAS ACCOUNT: [id number] : 1975 LOCATION: ER AGE: 44 SEX: M EXAM STATUS: PRE ER ORD. PHYSICIAN: KRISHNA SALDANA DO REASON: fall PROCEDURE: CHEST AP ONLY Study: CR CHEST AP ONLY Indication: Fall. Comparison: 05/20/2020 Findings: Within normal limits cardiomediastinal silhouette and karley. No confluent infiltrate, pneumothorax or pleural effusion. No newly seen osseous abnormality. No free air under the diaphragm. Impression: No acute radiographic abnormality of the chest. No interval change from 05/20/2020. Electronically signed by: GILSON MÉNDEZ MD (05/21/2020 9:50 PM) [id number] DICTATED AND SIGNED BY: GILSON MÉNDEZ MD DATE: 05/21/202149 CC: JESUS HERNANDEZ MD; KRISHNA SALDANA DO ~ [address] [address] IMAGING REPORT Signed PATIENT: FRANK SALINAS ACCOUNT: [id number] : 1975 LOCATION: ER AGE: 44 SEX: M EXAM STATUS: PRE ER ORD. PHYSICIAN: KRISHNA SALDANA DO REASON: fall PROCEDURE: CT HEAD AND CERVICAL SPINE WO Exam: CT head and cervical spine INDICATION: Fall TECHNIQUE: Sequential axial images through the head and cervical spine were obtained without the administration of IV contrast. Comparisons: None FINDINGS: Head: No focal parenchymal lesion or hemorrhage is identified. There is no midline shift or sulcal effacement. No acute vascular territory infarction is identified. Ryan-white distinction is preserved. The ventricular system is within normal limits without compression hydrocephalus. The basal cisterns are well maintained. The visualized portions of the paranasal sinuses and mastoid air cells are well-pneumatized. No acute fractures. Cervical spine: Vertebral body heights and alignment are well-maintained. Fracture to the cervical spine is not identified. Multilevel spondylotic change in cervical spine with degenerative disc disease greatest at C5-C6. Mild bilateral facet arthropathy is also noted. Visualized paraspinal soft tissues are unremarkable. IMPRESSION: 1. No acute intracranial abnormality. 2. Negative CT C-spine for acute traumatic injury. Exposure: One or more of the following in the visualized dose reduction techniques were utilized for this examination: 1. Automated exposure control 2. Adjustment of the MA and/or KV according to patient size Use of iterative of reconstructive technique Electronically signed by: Jaci Cowart MD (05/21/2020 9:40 PM) [facility] DICTATED AND SIGNED BY: JACI COWART MD DATE: 05/21/202139 CC: JESUS HERNANDEZ MD; KRISHNA SALDANA DO ~ [] Heart Score: Risk Factors: Risk Factors: DM, Current or recent (<one month) smoker, HTN, HLP, family history of CAD, obesity. Risk Scores: Score 0 - 3: 2.5% MACE over next 6 weeks - Discharge Home Score 4 - 6: 20.3% MACE over next 6 weeks - Admit for Clinical Observation Score 7 - 10: 72.7% MACE over next 6 weeks - Early Invasive Strategies Course & Med Decision Making: Course & Med Decision Making Pertinent Labs and Imaging studies reviewed. (See chart for details) [] Dragon Disclaimer: Dragon Disclaimer: This electronic medical record was generated, in whole or in part, using a voice recognition dictation system. Departure Departure: Impression: Primary Impression: Alcohol abuse Additional Impressions: Fall Qualified Codes: W19.XXXA - Unspecified fall, initial encounter Left elbow pain Knee pain, bilateral Qualified Codes: M25.561 - Pain in right knee; M25.562 - Pain in left knee Disposition: 01 DC HOME SELF CARE/HOMELESS Condition: STABLE Referrals: JESUS HERNANDEZ MD (PCP) Patient Instructions: Chronic Alcoholism KRISHNA SALDANA DO May 21, 2020 19:54
--- NOTE | 2020-05-21 21:43 | RAD ---
Exam: CT head and cervical spine INDICATION: Fall TECHNIQUE: Sequential axial images through the head and cervical spine were obtained without the administration of IV contrast. Comparisons: None FINDINGS: Head: No focal parenchymal lesion or hemorrhage is identified. There is no midline shift or sulcal effacement. No acute vascular territory infarction is identified. Ryan-white distinction is preserved. The ventricular system is within normal limits without compression hydrocephalus. The basal cisterns are well maintained. The visualized portions of the paranasal sinuses and mastoid air cells are well-pneumatized. No acute fractures. Cervical spine: Vertebral body heights and alignment are well-maintained. Fracture to the cervical spine is not identified. Multilevel spondylotic change in cervical spine with degenerative disc disease greatest at C5-C6. Mild bilateral facet arthropathy is also noted. Visualized paraspinal soft tissues are unremarkable. IMPRESSION: 1. No acute intracranial abnormality. 2. Negative CT C-spine for acute traumatic injury. Exposure: One or more of the following in the visualized dose reduction techniques were utilized for this examination: 1. Automated exposure control 2. Adjustment of the MA and/or KV according to patient size Use of iterative of reconstructive technique Electronically signed by: Jaci Hinojosa MD (05/21/2020 9:40 PM) [facility]
--- NOTE | 2020-05-21 21:51 | RAD ---
Study: CR ELBOW LEFT 2V Indication: Fall. Comparison: None. Findings: No acute fracture, malalignment or large elbow joint effusion. Prominence of the soft tissues overlying the dorsum of the elbow most likely contusion given history. Impression: No acute osseous abnormality. Presumed contusion at the dorsum of the elbow. Electronically signed by: GILSON MÉNDEZ MD (05/21/2020 9:48 PM) [id number]
--- NOTE | 2020-05-21 21:52 | RAD ---
Exam: Bilateral knees 3 views INDICATION: Fall TECHNIQUE: Frontal, lateral and oblique views of the right and left knee Comparisons: None FINDINGS: Right knee: Bone mineralization is normal. No acute or healed fractures. Soft tissues are unremarkable. Joint spaces are well-maintained. Left knee: Bone mineralization is normal. No acute or healed fractures. Soft tissues are unremarkable. Joint spaces are well-maintained. IMPRESSION: No acute osseous abnormality of the right or left knee. Electronically signed by: Jaci Hinojosa MD (05/21/2020 9:49 PM) [facility]
--- NOTE | 2020-05-21 21:53 | RAD ---
Study: CR CHEST AP ONLY Indication: Fall. Comparison: 05/20/2020 Findings: Within normal limits cardiomediastinal silhouette and karley. No confluent infiltrate, pneumothorax or pleural effusion. No newly seen osseous abnormality. No free air under the diaphragm. Impression: No acute radiographic abnormality of the chest. No interval change from 05/20/2020. Electronically signed by: GILSON MÉNDEZ MD (05/21/2020 9:50 PM) [id number]
[2020-05-21 22:00] VITALS: BP 125/84
[2020-05-21] MEDS ORDERED: IBUPROFEN 600 MG TABLET. PO ONE (22:15)
--- NOTE | 2020-05-22 07:33 | EKG ---
[address] [address] Test Date: 2020-05-21 Test Time: 20:19:59 Pat Name: FRANK SALINAS Department: Room: Gender: M [employer] Technician: : 1975 Requested By: KRISHNA SALDANA Order Number: [id number] Reading MD: Measurements Intervals [place] Rate: 114 P: 65 AK: 148 QRS: 46 QRSD: 84 T: 39 QT: 326 QTc: 453 Interpretive Statements SINUS TACHYCARDIA OTHERWISE NORMAL ECG RI6.02 No previous ECG available for comparison
== END 2020-05-21 22:10 | disposition home or self-care (01) ==
LOC: ER 19:33
DX: M25.561 Pain in right knee (principal); M25.562 Pain in left knee; M25.522 Pain in left elbow; F10.20 Alcohol dependence, uncomplicated; J44.9 Chronic obstructive pulmonary disease, unspecified; F17.210 Nicotine dependence, cigarettes, uncomplicated; Z86.73 Personal history of transient ischemic attack (TIA), and cerebral infarction without residual deficits; Y90.9 Presence of alcohol in blood, level not specified; W18.39XA Other fall on same level, initial encounter; Y93.89 Activity, other specified; Y92.89 Other specified places as the place of occurrence of the external cause; Y99.8 Other external cause status
CPT/HCPCS: 70450; 71045; 72125; 73070; 73562; 93005; 99285-25

== ENCOUNTER 2020-06-09 16:40 | Inpatient (IN) | payer SELFPAY ==
[~2020-06-09] VITALS: Ht 182.9 cm; Wt 60.6 kg
--- NOTE | 2020-06-09 16:59 | PHYS DOC ---
Past History Past Medical History: COPD, Stroke Additional Past Medical Histor: cerebral hematoma, barrets esophagus, etoh abuse (JIMMY KATHLEEN MD) Past Surgical History: No Surgical History (JIMMY KATHLEEN MD) Smoking: Cigarettes Alcohol Use: Heavy Drug Use: None (JIMMY KATHLEEN MD) General Adult EDM: Chief Complaint: MULTIPLE COMPLAINTS HPI: HPI: Patient is a male arrives with multiple complaints. Patient states he has had a cough and difficulty breathing for 6 months. Patient has had some left-sided rib pain that radiates to the front for last 4 to 5 days. Patient describes some lightheaded dizziness as well. Patient has some shortness of breath. Patient also describes 4 to 5 days of bilateral blurry vision. Patient during initial interview had what appeared to be a voluntary fall to the floor and started shaking. This lasted for about 15 seconds. No significant trauma with the fall. Head CT was ordered after the fall due to his complaints and past history of cerebral hematoma. Due to this episode he has history physical review of systems are limited due to poor cooperation. Last drink was a week ago. (JIMMY KATHLEEN MD) Review of Systems: Review of Systems: Constitutional: Patient states he felt hot but did not take his temperature Eyes: Complains of blurry vision HENT: Denies nasal congestion or sore throat Respiratory: Complains of cough and shortness of breath Cardiovascular: Complains of left-sided chest pain GI: Denies abdominal pain, nausea, vomiting, bloody stools or diarrhea : Denies dysuria Musculoskeletal: Complains of left flank pain Integument: Denies rash Neurologic: Complains of headache but no focal weakness or sensory changes Endocrine: Denies polyuria or polydipsia Lymphatic: Denies swollen glands Psychiatric: Denies depression or anxiety (JIMMY KATHLEEN MD) Allergies: Allergies: Allergies Coded Allergies Type Severity Reaction Last Updated Verified No Known Allergies Allergy Unknown 06/09/20 Yes (JIMMY KATHLEEN MD) Physical Exam: PE: Constitutional: Well developed, cachectic appearing, no acute distress, non- toxic appearance. [] HENT: Normocephalic, atraumatic, bilateral external ears normal, small left- sided tongue abrasion was present after the fall nose normal. [] Eyes: PERRLA, EOMI, conjunctiva normal, no discharge. [] Neck: Normal range of motion, no tenderness, supple, no stridor. [] Cardiovascular:Heart rate regular rhythm, peripheral pulses are intact, cap refill is brisk Lungs & Thorax: Bilateral breath sounds clear, no respiratory distress Abdomen: soft, no tenderness, no masses, no pulsatile masses. [] Skin: Warm, dry, no erythema, no rash. [] Back: No tenderness, no CVA tenderness. [] Extremities: No tenderness, no cyanosis, no clubbing, ROM intact, no edema. [] Neurologic: Alert and oriented X 3, normal motor function, normal sensory function, no focal deficits noted. [] Psychologic: Affect normal, judgement normal, mood normal. [] (JIMMY KATHLEEN MD) Current Patient Data: Labs: Laboratory Tests Test 06/09/20 17:20 White Blood Count 8.0 x10^3/uL Red Blood Count 4.10 x10^6/uL Hemoglobin 14.2 g/dL Hematocrit 42.9 % Mean Corpuscular Volume 105 fL Mean Corpuscular Hemoglobin 35 pg Mean Corpuscular Hemoglobin Concent 33 g/dL Red Cell Distribution Width 15.0 % Platelet Count 120 x10^3/uL Neutrophils (%) (Auto) 78 % Lymphocytes (%) (Auto) 8 % Monocytes (%) (Auto) 13 % Eosinophils (%) (Auto) 0 % Basophils (%) (Auto) 1 % Neutrophils # (Auto) 6.3 x10^3uL Lymphocytes # (Auto) 0.6 x10^3/uL Monocytes # (Auto) 1.0 x10^3/uL Eosinophils # (Auto) 0.0 x10^3/uL Basophils # (Auto) 0.1 x10^3/uL D-Dimer (Haylie) 1.51 mg/L Sodium Level 132 mmol/L Potassium Level 3.3 mmol/L Chloride Level 92 mmol/L Carbon Dioxide Level 22 mmol/L Anion Gap 18 Blood Urea Nitrogen 12 mg/dL Creatinine 1.2 mg/dL Estimated GFR (Cockcroft-Gault) 66.4 BUN/Creatinine Ratio 10 Glucose Level 128 mg/dL Calcium Level 9.3 mg/dL Total Bilirubin 0.7 mg/dL Aspartate Amino Transf (AST/SGOT) 157 U/L Alanine Aminotransferase (ALT/SGPT) 87 U/L Alkaline Phosphatase 79 U/L Troponin I Quantitative < 0.017 ng/mL Total Protein 7.1 g/dL Albumin 3.5 g/dL Albumin/Globulin Ratio 1.0 Lipase 167 U/L Ethyl Alcohol Level < 10 mg/dL Current Medications Medications (Trade) Dose Ordered Sig/Donnie Route PRN Reason Start Time Stop Time Status Last Admin Dose Admin Multivitamins/ Minerals 10 ml/ Folic Acid 1 mg/ Thiamine HCl 100 mg/Lactated Ringer's 1,011.3 ml @ 1,011.3 mls/hr 1X ONCE IV 06/09/20 17:00 06/09/20 17:59 DC 06/09/20 17:45 Lorazepam (Ativan Inj) 2 mg 1X ONCE IVP 06/09/20 17:45 06/09/20 17:46 DC 06/09/20 17:45 (MARBIN DE LA TORRE DO) EKG: EKG: [] EKG interpreted by me normal sinus rhythm with a rate of 98 normal axis normal intervals normal ST segments (JIMMY KATHLEEN MD) Radiology/Procedures: Radiology/Procedures: [] (JIMMY KATHLEEN MD) Radiology/Procedures: [place] [address] IMAGING REPORT Signed PATIENT: FRANK SALINAS ACCOUNT: [id number] : 1975 LOCATION: ER AGE: 44 SEX: M EXAM STATUS: REG ER ORD. PHYSICIAN: JIMMY KATHLEEN MD REASON: DIZZY PROCEDURE: CT HEAD WO CONTRAST Examination: CT HEAD WO CONTRAST History: DIZZY / Comparison/Correlation: 05/21/2020 CT head and cervical spine without contrast Findings: Axial images of the head were obtained without contrast. Mild atrophy is present. No intracranial hemorrhage, midline shift, or mass effect. Bony structures are grossly unremarkable. Mastoid air cells are clear. Mild chronic paranasal sinusitis. External auditory canals are unremarkable. Impression: Atrophy is somewhat advanced for age. Correlate with clinical history. No acute process. PQRS Compliance Statement: One or more of the following individualized dose reduction techniques were utilized for this examination: 1. Automated exposure control 2. Adjustment of the mA and/or kV according to patient size 3. Use of iterative reconstruction technique Electronically signed by: Donny Alaniz MD (06/09/2020 6:07 PM) [facility] DICTATED AND SIGNED BY: DONNY ALANIZ MD DATE: 06/09/201806 CC: JIMMY KATHLEEN MD; PCP,NO; MARBIN DE LA TORRE DO ~ [address] [address] IMAGING REPORT Signed PATIENT: FRANK SALINAS ACCOUNT: [id number] : 1975 LOCATION: ER AGE: 44 SEX: M EXAM STATUS: REG ER ORD. PHYSICIAN: JIMMY KATHLEEN MD REASON: LEFT SIDED CHEST PAIN PROCEDURE: PORTABLE CHEST 1V Examination: PORTABLE CHEST 1V History: Reason: LEFT SIDED CHEST PAIN / Comparison/Correlation: 05/21/2020 Findings: Portable upright frontal view of the chest was obtained. Heart size and pulmonary vessels are normal. No infiltrate or pleural effusion. No pneumothorax. Bony structures are grossly unremarkable. Impression: No active disease. Electronically signed by: Donny Alaniz MD (06/09/2020 6:10 PM) [facility] DICTATED AND SIGNED BY: DONNY ALANIZ MD DATE: 06/09/201809 CC: JIMMY KATHLEEN MD; PCP,NO; MARBIN DE LA TORRE DO ~ [address] [address] IMAGING REPORT Signed PATIENT: FRANK SALINAS ACCOUNT: [id number] : 1975 LOCATION: ER AGE: 44 SEX: M EXAM STATUS: REG ER ORD. PHYSICIAN: MARBIN DE LA TORRE DO REASON: chest pain, elevated ddimer, OMNI 350, 100ml PROCEDURE: CT ANGIOGRAPHY CHEST Examination: CT ANGIOGRAPHY CHEST History: Reason: chest pain, elevated ddimer, OMNI 350, 100ml / Spl. Instructions: / History: Comparison/Correlation: None Findings: Axial images of the chest were obtained following IV contrast according to pulmonary arteriography protocol. Maximum intensity projection images were provided. Sagittal and coronal reformatted images were provided. Pulmonary arterial vasculature is normal. No PE. Subtle diffuse micronodularity of the lung dick previously described is similar to the prior exam. No dense consolidation or new infiltrate. Mild ectasia of the ascending aorta is suggested with diameter of 3.9 cm and descending thoracic aorta has a diameter of up to 2.2 cm. Thoracic aorta is not opacified for purposes of arteriographic protocol. The left common carotid artery arises from the right brachiocephalic artery. No enlarged thoracic lymph nodes. Partially visualized upper abdomen is unremarkable. Bony structures are unremarkable. Impression: No PE. Subtle micronodular appearance of the lung dick is similar to previous exam. No new infiltrate or other significant change. Correlate with clinical history in determining interval follow-up to assess for resolution or stability. Ascending thoracic ectasia. Consider interval follow-up in 1 year to assess stability. PQRS Compliance Statement: One or more of the following individualized dose reduction techniques were utilized for this examination: 1. Automated exposure control 2. Adjustment of the mA and/or kV according to patient size 3. Use of iterative reconstruction technique Electronically signed by: Donny Alaniz MD (06/09/2020 6:59 PM) [facility] DICTATED AND SIGNED BY: DONNY ALANIZ MD DATE: 06/09/201858 CC: PCP,NO; MARBIN DE LA TORRE DO ~ (MARBIN DE LA TORRE DO) Heart Score: Risk Factors: Risk Factors: DM, Current or recent (<one month) smoker, HTN, HLP, family history of CAD, obesity. Risk Scores: Score 0 - 3: 2.5% MACE over next 6 weeks - Discharge Home Score 4 - 6: 20.3% MACE over next 6 weeks - Admit for Clinical Observation Score 7 - 10: 72.7% MACE over next 6 weeks - Early Invasive Strategies (JIMMY KATHLEEN MD) Course & Med Decision Making: Course & Med Decision Making Pertinent Labs and Imaging studies reviewed. (See chart for details) [] 44-year-old male presents with multiple complaints. Patient has an extensive work-up that is in order. Care was signed over Dr. De La Torre. Labs and CT are pending and disposition is pending. (JIMMY KATHLEEN MD) Course & Med Decision Making 1800 Care of patient assumed at shift change 1812 D-dimer was elevated. CT angio chest PE protocol ordered. Patient is currently being administered a banana bag. Should be noted the patient has difficulty with alcohol withdrawal and has gone into seizures and possibly delirium tremens in the past 1922 stable, case discussed with Dr. Jon the hospitalist. Patient presented for alcohol withdrawal protocol. Patient currently receiving a banana bag infusion. Patient feeling better and much less symptomatic at this time. Patient has no focal deficits or lateralizing signs. Patient states his last drink was about 3 days ago. pt will be placed on CIWA protocol as requested as well. (MARBIN DE LA TORRE DO) Dragon Disclaimer: Dragon Disclaimer: This electronic medical record was generated, in whole or in part, using a voice recognition dictation system. (JIMMY KATHLEEN MD) Departure Departure: Impression: Primary Impression: Dizziness Additional Impression: Alcohol withdrawal Qualified Codes: F10.239 - Alcohol dependence with withdrawal, unspecified Disposition: 09 ADMITTED INPT THIS HOSP Admitting Physician: Lucas Jon (MARBIN DE LA TORRE DO) Condition: STABLE Referrals: PCP,NO (PCP) JIMMY KATHLEEN MD Jun 09, 2020 16:58 MARBIN DE LA TORRE DO Jun 09, 2020 17:55
[2020-06-09] MEDS ORDERED: MVI, ADULT NO.4 WITH VIT K 10 ML, FOLIC ACID INJ 1 MG, THIAMINE INJ 100 MG in IV RINGER... IV ONE (17:00)
--- NOTE | 2020-06-09 17:29 | EKG ---
[address] [address] Test Date: 2020-06-09 Test Time: 17:17:48 Pat Name: FRANK SALINAS Department: Room: Gender: M Lapel Padder: WILBERTO : 1975 Requested By: JIMMY KATHLEEN Order Number: [id number] Reading MD: Measurements Intervals [place] Rate: 98 P: 48 ME: 154 QRS: 54 QRSD: 84 T: 62 QT: 340 QTc: 436 Interpretive Statements SINUS RHYTHM OTHERWISE NORMAL ECG RI6.02 No previous ECG available for comparison
[2020-06-09 17:46] LABS: BASO # 0.1 x10^3/uL (0.0-0.2); BASO % 1 % (0-3); EOS % 0 % (0-3); HEMATOCRIT 42.9 % (39.0-53.0); HEMOGLOBIN 14.2 g/dL (13.0-17.5); LYMPH # 0.6 x10^3/uL (1.0-4.8); LYMPH % 8 % (24-48); MEAN CORPUSCULAR HEMOGLOBIN 35 pg (25-35); MEAN CORPUSCULAR HGB CONC 33 g/dL (31-37); MEAN CORPUSCULAR VOLUME 105 fL (79-100); MONO % 13 % (0-9); NEUT # 6.3 x10^3uL (1.8-7.7); NEUT % 78 % (31-73); PLATELET COUNT 120 x10^3/uL (140-400)
[2020-06-09 17:56] LABS: CALCIUM 9.3 mg/dL (8.5-10.1); CREATININE 1.2 mg/dL (0.7-1.3); GFR 66.4; POTASSIUM 3.3 mmol/L (3.5-5.1)
[2020-06-09 18:06] LABS: ALBUMIN 3.5 g/dL (3.4-5.0); TOTAL BILIRUBIN 0.7 mg/dL (0.2-1.0); TOTAL PROTEIN 7.1 g/dL (6.4-8.2)
--- NOTE | 2020-06-09 18:10 | RAD ---
Examination: CT HEAD WO CONTRAST History: DIZZY / Comparison/Correlation: 05/21/2020 CT head and cervical spine without contrast Findings: Axial images of the head were obtained without contrast. Mild atrophy is present. No intracranial hemorrhage, midline shift, or mass effect. Bony structures are grossly unremarkable. Mastoid air cells are clear. Mild chronic paranasal sinusitis. External auditory canals are unremarkable. Impression: Atrophy is somewhat advanced for age. Correlate with clinical history. No acute process. PQRS Compliance Statement: One or more of the following individualized dose reduction techniques were utilized for this examination: 1. Automated exposure control 2. Adjustment of the mA and/or kV according to patient size 3. Use of iterative reconstruction technique Electronically signed by: Donny Herbert MD (06/09/2020 6:07 PM) [facility]
--- NOTE | 2020-06-09 18:13 | RAD ---
Examination: PORTABLE CHEST 1V History: Reason: LEFT SIDED CHEST PAIN / Comparison/Correlation: 05/21/2020 Findings: Portable upright frontal view of the chest was obtained. Heart size and pulmonary vessels are normal. No infiltrate or pleural effusion. No pneumothorax. Bony structures are grossly unremarkable. Impression: No active disease. Electronically signed by: Donny Herbert MD (06/09/2020 6:10 PM) [facility]
[2020-06-09] MEDS ORDERED: IOHEXOL 350 MG/ML 100 ML VIAL. IV ONE (18:30)
--- NOTE | 2020-06-09 19:02 | RAD ---
Examination: CT ANGIOGRAPHY CHEST History: Reason: chest pain, elevated ddimer, OMNI 350, 100ml / Spl. Instructions: / History: Comparison/Correlation: None Findings: Axial images of the chest were obtained following IV contrast according to pulmonary arteriography protocol. Maximum intensity projection images were provided. Sagittal and coronal reformatted images were provided. Pulmonary arterial vasculature is normal. No PE. Subtle diffuse micronodularity of the lung dick previously described is similar to the prior exam. No dense consolidation or new infiltrate. Mild ectasia of the ascending aorta is suggested with diameter of 3.9 cm and descending thoracic aorta has a diameter of up to 2.2 cm. Thoracic aorta is not opacified for purposes of arteriographic protocol. The left common carotid artery arises from the right brachiocephalic artery. No enlarged thoracic lymph nodes. Partially visualized upper abdomen is unremarkable. Bony structures are unremarkable. Impression: No PE. Subtle micronodular appearance of the lung dick is similar to previous exam. No new infiltrate or other significant change. Correlate with clinical history in determining interval follow-up to assess for resolution or stability. Ascending thoracic ectasia. Consider interval follow-up in 1 year to assess stability. PQRS Compliance Statement: One or more of the following individualized dose reduction techniques were utilized for this examination: 1. Automated exposure control 2. Adjustment of the mA and/or kV according to patient size 3. Use of iterative reconstruction technique Electronically signed by: Donny Herbert MD (06/09/2020 6:59 PM) [facility]
[2020-06-09] MEDS ORDERED: ONDANSETRON PF 4 MG/2 ML VIAL. IVP PRN (19:30)
[2020-06-09] MEDS ORDERED: chlordiazePOXIDE HCL 25 MG CAPSULE PO PRN ×2 (19:45)
[2020-06-09] MEDS ORDERED: THIAMINE 100 MG TABLET. PO ONE (19:45)
[2020-06-09 19:50] LABS: BARBITURATES NEG (NEG); BENZODIAZEPINES NEG (NEG); CANNABINOIDS POS (NEG); COCAINE NEG (NEG); METHADONE NEG (NEG); OPIATES NEG (NEG); PHENCYCLIDINE NEG (NEG)
[2020-06-09 19:51] LABS: BILIRUBIN,URINE NEG (NEG); CLARITY,URINE CLEAR; COLOR,URINE YELLOW; GLUCOSE,URINE NEG (NEG); NITRITE,URINE NEG (NEG)
[2020-06-09 19:52] LABS: BACTERIA,URINE 0 /HPF (0-FEW); RBC,URINE 0 /HPF (0-2); WBC,URINE 0 /HPF (0-4)
[2020-06-09 19:56] LABS: AMPHETAMINE/METHAMPHETAMINE NEG (NEG)
[2020-06-09 20:20] VITALS: BP 128/87
--- NOTE | 2020-06-09 20:20 | NUR ---
Admission Note: Pt transported via EMS from Ed to room 115. Pt ambulated from cart to bed independently, steady gait observed. VSS. No c/o n/v at this time. Pt continues to c/o left side pain 8:10 (advised pt I would discuss w/physician medications for pain, pt agreed). Admission documentation completed. Pt oriented to room/surroundings/hospital routines/smoking policy/use of call light/ and safety precautions. Will continue to monitor.
[2020-06-09] MEDS ORDERED: cloNIDine HCL 0.1 MG TABLET PO PRN (21:30)
[2020-06-09] MEDS ORDERED: LORazepam 1 MG TABLET PO PRN ×2 (21:30)
[2020-06-09] MEDS: NICOTINE 21MG PATCH. TD SCH (22:32)
[2020-06-09] MEDS: MORPHINE SULFATE 4 MG/ML DISP.SYRIN. IV PRN (22:33)
[2020-06-09 23:30] VITALS: BP 115/79
[2020-06-10 05:51] VITALS: BP 119/77
[2020-06-10] MEDS: NICOTINE 21MG PATCH. TD SCH (08:47)
[2020-06-10] MEDS: MORPHINE SULFATE 4 MG/ML DISP.SYRIN. IV PRN (08:54)
[2020-06-10] MEDS ORDERED: POTASSIUM CHLORIDE 20 MEQ TABLET.ER. PO SCH (09:00)
[2020-06-10] MEDS ORDERED: FOLIC ACID 1 MG TABLET PO SCH (09:00)
[2020-06-10] MEDS ORDERED: MAGNESIUM SULFATE 1GM 100 ML IV ONE (09:00)
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
--- NOTE | 2020-06-10 11:07 | NUR ---
NURSING NOTE: PT IN BED UPON MEDICATION ADMINISTRATION AND ASSESSMENT. PT COMPLAINED OF INCREASED ANXIETY, PROVIDED PRN ATIVAN. PT COMPLAINED OF PAIN, ADMINISTERED PRN MORPHINE. PT COMPLIANT WITH TREATMENT. PT WOULD LIKE ALCOHOL TREATMENT. UPON REASSESSMENT PT SLEEPING. WILL CONTINUE TO MONITOR. GIL CAMACHO
[2020-06-10 11:15] VITALS: BP 111/71
--- NOTE | 2020-06-10 15:10 | NUR ---
NURSING NOTE: DISCHARGE PT DISCHARGED TO [facility]. WRITTEN AND VERBAL DISCHARGE INSTRUCTIONS GIVEN , VERBAL UNDERSTANDING RECEIVED. RX GIVEN FOR ATIVAN. NO FURTHER QUESTIONS. [facility] CALLED FOR PT. GIL CAMACHO
[2020-06-10 15:12] VITALS: BP 112/71
--- NOTE | 2020-06-10 16:00 | DS ---
DATE OF DISCHARGE: 06/10/2020 ATTENDING PHYSICIAN: Dr. Pickering. FINAL DISCHARGE DIAGNOSES: 1. Chronic alcoholism. 2. Delirium tremens ruled out. 3. History of alcohol-related seizures. 4. Noncompliance of medications. 5. Chronic obstructive pulmonary disease. 6. Polysubstance abuse. 7. Mild dehydration. 8. Hypokalemia, corrected. HISTORY AND PHYSICAL: The patient is a 44-year-old gentleman, chronic alcoholic, admitted through the ED with tremulous and weakness. He has been noncompliant. He continues to drink heavily. PHYSICAL EXAMINATION: Please see the dictated note. PERTINENT LABORATORY AND X-RAY STUDIES: Admission hemoglobin 14.2 grams, white count of 8000. Potassium 3.3 mEq, he is asymptomatic. He was given supplement. This will be followed up. Creatinine is 1.2. Cardiac enzymes negative for myocardial necrosis. Bilirubin 0.7. Toxicology screen positive for cannabinoids. Urine is fairly unremarkable. COURSE IN THE HOSPITAL: The patient was started on CIWA protocol. He responded well to Ativan. Diet was advanced. He was quite stable. We reexamined later in the day, his vital signs are stable. He has no impending DT. Therefore, we recommended Ativan. Dictation Ends Here. DILIA PICKERING MD DR: HENNA/shivam JOB#: [id number] / [id number]
[2020-06-10] MEDS ORDERED: IBUP-571 PO (21:24)
== END 2020-06-10 15:27 | disposition home or self-care (01) | DRG 641 ==
LOC: ER 16:40 → 1 SOUTH 19:46
PROVIDERS: ADMIT Hospitalist; ATTEND Hospitalist
DX: E86.0 Dehydration (principal); F10.239 Alcohol dependence with withdrawal, unspecified; E87.6 Hypokalemia; J44.9 Chronic obstructive pulmonary disease, unspecified; Y90.0 Blood alcohol level of less than 20 mg/100 ml; F12.10 Cannabis abuse, uncomplicated; K22.70 Barrett's esophagus without dysplasia; Z86.73 Personal history of transient ischemic attack (TIA), and cerebral infarction without residual deficits; Z87.891 Personal history of nicotine dependence; Z91.14 Patient's other noncompliance with medication regimen; Z91.19 Patient's noncompliance with other medical treatment and regimen; Z91.81 History of falling
CPT/HCPCS: 36415; 70450; 71045; 71275; 80053; 80307; 81001; 83690; 83735; 84436; 84484; 85025; 85379; 93005; 96374; G0480; J2060; J2270; J3475; J7120; Q9967; 99285-25

== ENCOUNTER 2020-06-10 18:49 | Emergency (ER) | payer SELFPAY ==
[~2020-06-10] VITALS: Ht 182.9 cm; Wt 60.6 kg
--- NOTE | 2020-06-10 19:31 | PHYS DOC ---
Past History Past Medical History: COPD, Seizure, Stroke Additional Past Medical Histor: cerebral hematoma, barrets esophagus, etoh abuse (LAURA JACKSON APRN) Past Surgical History: No Surgical History (LAURA JACKSON APRN) Smoking: Cigarettes Alcohol Use: Heavy Drug Use: None (LAURA JACKSON APRN) Adult General Chief Complaint Chief Complaint: MULTIPLE COMPLAINTS HPI HPI Patient is a 44 year old man who presents with complaints of being discharged just moments before arrival from [facility] and continues to have the same symptoms he was admitted with, patient states he would like to have some sort of benzo for my withdrawal symptoms. Patient states he continues to have crushing chest pain 10/10 on a 1-10 pain scale along with severe shortness of breath. Patient complains of fever and chills for the last several months, states that his vision changes consistently, complains of nasal congestion cough with shortness of breath states he has everything wrong with him and he wants to be readmitted to the hospital. (LAURA JACKSON APRN) Review of Systems Review of Systems Constitutional: Denies fever or chills Eyes: Denies change in visual acuity, redness, or eye pain HENT: Complains of nasal congestion or sore throat Respiratory: Complains of cough or shortness of breath Cardiovascular: Complains of crushing chest pain 10 out of 10 with radiation to both arms legs and back and had GI: Denies abdominal pain, nausea, vomiting, bloody stools or diarrhea : Denies dysuria or hematuria Musculoskeletal: Denies back pain or joint pain Integument: Denies rash or skin lesions Neurologic: Denies headache, focal weakness or sensory changes Psychiatric: Denies homicidal and suicidal ideations, denies anxieties or depressions. All other systems were reviewed and found to be within normal limits, except as documented in this note. (LAURA JACKSON APRN) Allergies Allergies Allergies Coded Allergies Type Severity Reaction Last Updated Verified No Known Allergies Allergy Unknown 06/09/20 Yes (LAURA JACKSON APRN) Physical Exam Physical Exam Constitutional: Well developed, well nourished, no acute distress, non-toxic appearance. Patient's complaints of pain exceed physical examination findings. HENT: Normocephalic, atraumatic, bilateral external ears normal, oropharynx moist, no oral exudates, nose normal. Eyes: PERRLA, EOMI, conjunctiva normal, no discharge. Neck: Normal range of motion, no tenderness, supple, no stridor. Cardiovascular:Heart rate regular rhythm, no murmur, heart sounds S1-S2 to auscultation Lungs & Thorax: Bilateral breath sounds clear to auscultation all lung dick, no dyspnea noted during physical exam. Abdomen: Bowel sounds normal, soft, no tenderness, no masses, no pulsatile mas ses. Skin: Warm, dry, no erythema, no rash. Back: No tenderness, no CVA tenderness. Extremities: No tenderness, no cyanosis, no clubbing, ROM intact, no edema. Neurologic: Alert and oriented X 3, normal motor function, normal sensory function, no focal deficits noted. Psychologic: Affect normal, judgement normal, mood normal. (LAURA JACKSON APRN) EKG EKG EKG was performed at 1952 by ED nursing staff, heart rate was 103, shows sinus tachycardia without ectopy, MO interval 0.156, QTc interval 0.429, no STEMI, no ischemia, no coronary syndrome noted, EKG interpreted by ED attending Dr. Monahan. (LAURA JACKSON APRN) Radiology/Procedures Radiology/Procedures [] (LAURA JACKSON APRN) Heart Score Risk Factors: Risk Factors: DM, Current or recent (<one month) smoker, HTN, HLP, family history of CAD, obesity. Risk Scores: Risk Factors: DM, Current or recent (<one month) smoker, HTN, HLP, family history of CAD, obesity. (LAURA JACKSON APRN) Course & Med Decision Making Course & Med Decision Making Pertinent Labs and Imaging studies reviewed. (See chart for details) Patient arrived to the emergency department after being discharged from [facility] stating that he walked from [facility] down to the ER wants to be readmitted for the same problems. Patient states he continues to have crushing 10/10 chest pain on a 1-10 pain scale, continues to have severe shortness of breath. Physical examination was unremarkable, vital signs are stable, a chest x-ray and cardiac labs were drawn along with CBC and CMP, lab work was unremarkable, EKG was unremarkable did not show STEMI, ischemia, or coronary syndrome, was interpreted by ED attending Dr. Monahan. Upon reexamination of the patient discussed with patient findings of equivocal labs. Patient states that he would like to have a prescription for some sort of fred o. Discussed with patient the emergency department could not write for him a benzodiazepine, patient then requested Percocet or Kincaid's which ever he could get, also discussed with patient that the emergency department would not write for pain medications. Patient is exhibiting drug-seeking behavior, discussed this with patient who became angry and wished to go home. Patient will be discharged home. Patient had no further questions or concerns, patient discharged home without incident. (LAURA JACKSON APRN) Dragon Disclaimer Dragon Disclaimer This electronic medical record was generated, in whole or in part, using a voice recognition dictation system. (LAURA JACKSON APRN) Attending Co-Sign The patient was seen and interviewed as well as examined at the bedside. The chart was reviewed. The case was discussed. Agree with the plan of care. (RAYSHAWN MONAHAN DO) Departure Departure: Impression: Primary Impression: Chest wall pain Disposition: 01 DC HOME SELF CARE/HOMELESS Condition: STABLE Referrals: PCP,NO (PCP) Patient Instructions: Chest Wall Pain Additional Instructions: Take medications as prescribed, return to emergency department for worsening symptoms, follow-up with your doctor soon. EMERGENCY DEPARTMENT GENERAL DISCHARGE INSTRUCTIONS Thank you for coming to [facility] (ED) today and trusting us with you care. We trust that you had a positivie experience in our Emergency Department. If you wish to speak to the department management, you may call the director at [phone]. YOUR FOLLOW UP INSTRUCTIONS ARE FOLLOWS: 1. Do you have a private Doctor? If you do not have a private doctor, please ask for a resource list of physicians or clinics that may be able to assist you with follow up care. 2. The Emergency Physician has interpreted your x-rays. The X-Ray specialist will also review them. If there is a change in the findings, you will be notified in 48 hours when at all possible. 3. A lab test or culture has been done, your results will be reviewed and you will be notified if you need a change in treatment. ADDITIONAL INSTRUCTIONS AND INFORMATION: 1. Your care today has been supervised by a physician who is specially trained in emergency care. Many problems require more than one evaluation for a complete diagnosis and treatment. We recommend that you schedule your follow up appointment as recommended to ensure complete treatment of you illness or injury. If you are unable to obtain follow up care and continue to have a problem, or if your condition worsens, we recommend that you return to the ED. 2. We are not able to safely determine your condition over the phone nor are we able to give sound medical advice over the phone. For these safety reasons, if you call for medical advice we will ask you to come to the ED for further evaluation. 3. If you have any questions regarding these discharge instructions please call the ED at [phone]. SAFETY INFORMATION: In the interest of safety, wellness, and injury prevention; we encourage you to wear your sealbelt, if you smoke; quite smoking, and we encourage family to use a protective helmet for bicycling and other sporting events that present an increased risk for head injury. IF YOUR SYMPTOMS WORSEN OR NEW SYMPTOMS DEVELOP, OR YOU HAVE CONCERNS ABOUT YOUR CONDITION; OR IF YOUR CONDITION WORSENS WHILE YOU ARE WAITING FOR YOUR FOLLOW UP APPOINTMENT; EITHER CONTACT YOUR PRIMARY CARE DOCTOR, THE PHYSICIAN WHOSE NAME AND NUMBER YOU WERE GIVEN, OR RETURN TO THE ED IMMEDIATELY. Scripts Ibuprofen (Ibu) 600 Mg Tablet 1 TAB PO Q6HRS for PAIN for 7 Days, #28 TAB 0 Refills Prov: LAURA JACKSON APRN 06/10/20 LAURA JACKSON APRN Jun 10, 2020 19:31 RAYSHAWN MONAHAN DO Jun 11, 2020 05:45
[2020-06-10] MEDS ORDERED: IBUPROFEN 600 MG TABLET. PO ONE (19:45)
--- NOTE | 2020-06-10 20:25 | RAD ---
PA lateral chest x-rays HISTORY: Chest pain shortness of breath. COMPARISON: CT chest June 09, 2020. FINDINGS: Heart size normal. Mediastinal silhouette is normal. No pneumothorax, pulmonary opacities or pleural effusions. Hyperinflation the lungs with flattening of diaphragms indicating air-trapping from COPD or bronchitis. Bones unremarkable. IMPRESSION: Hyperinflation of the lungs with flattening of diaphragms may indicate air trapping from asthma or bronchitis. Electronically signed by: Shad Mackay MD (06/10/2020 8:22 PM) [facility]
[2020-06-10 20:32] LABS: BASO # 0.1 x10^3/uL (0.0-0.2); BASO % 1 % (0-3); EOS # 0.1 x10^3/uL (0.0-0.7); EOS % 1 % (0-3); HEMATOCRIT 39.6 % (39.0-53.0); HEMOGLOBIN 13.2 g/dL (13.0-17.5); LYMPH # 0.9 x10^3/uL (1.0-4.8); LYMPH % 12 % (24-48); MEAN CORPUSCULAR HEMOGLOBIN 35 pg (25-35); MEAN CORPUSCULAR HGB CONC 33 g/dL (31-37); MEAN CORPUSCULAR VOLUME 104 fL (79-100); MONO # 0.8 x10^3/uL (0.0-1.1); MONO % 11 % (0-9); NEUT # 5.4 x10^3uL (1.8-7.7); NEUT % 75 % (31-73); PLATELET COUNT 129 x10^3/uL (140-400); RED CELL DISTRIBUTION WIDTH 14.9 % (11.5-14.5); WHITE BLOOD COUNT 7.2 x10^3/uL (4.0-11.0)
[2020-06-10 20:41] LABS: CALCIUM 9.4 mg/dL (8.5-10.1); CREATININE 0.6 mg/dL (0.7-1.3); GFR 147.8; POTASSIUM 3.4 mmol/L (3.5-5.1)
[2020-06-10 20:55] LABS: ALBUMIN 3.3 g/dL (3.4-5.0); TOTAL BILIRUBIN 0.5 mg/dL (0.2-1.0); TOTAL PROTEIN 6.6 g/dL (6.4-8.2)
[2020-06-10] MEDS ORDERED: POTASSIUM CHLORIDE 20 MEQ TABLET.ER. PO ONE (21:00)
[2020-06-10] MEDS ORDERED: IBUP-571 PO (21:24)
[2020-06-10 21:35] VITALS: BP 112/70
--- NOTE | 2020-06-11 11:59 | EKG ---
[address] [address] Test Date: 2020-06-10 Test Time: 19:52:24 Pat Name: FRANK SALINAS Department: Room: Gender: M Video [employer] Storywriter: SASHA : 1975 Requested By: LAURA JACKSON Order Number: [id number] Reading MD: Measurements Intervals Banks Rate: 103 P: 132 PA: 156 QRS: 73 QRSD: 76 T: 70 QT: 326 QTc: 429 Interpretive Statements SINUS TACHYCARDIA NO SPECIFIC ECG ABNORMALITIES RI6.02 No previous ECG available for comparison
== END 2020-06-10 21:35 | disposition home or self-care (01) ==
LOC: ER 18:49
DX: R07.89 Other chest pain (principal); J44.9 Chronic obstructive pulmonary disease, unspecified; F17.210 Nicotine dependence, cigarettes, uncomplicated; F10.20 Alcohol dependence, uncomplicated; Z86.73 Personal history of transient ischemic attack (TIA), and cerebral infarction without residual deficits; Y90.9 Presence of alcohol in blood, level not specified
CPT/HCPCS: 36415; 71046; 80053; 84484; 85025; 93005; 99285

== ENCOUNTER 2020-06-21 16:26 | Emergency (ER) | payer SELFPAY ==
[~2020-06-21] VITALS: Ht 182.9 cm; Wt 60.6 kg
[~2020-06-21 16:26] MED LIST changes: +IBUP-571 PO
--- NOTE | 2020-06-21 17:17 | PHYS DOC ---
Past History Past Medical History: COPD, Seizure, Stroke Additional Past Medical Histor: cerebral hematoma, barrets esophagus, etoh abuse (LAURA JACKSON APRN) Past Surgical History: No Surgical History (LAURA JACKSON APRN) Smoking: Cigarettes Alcohol Use: Heavy Drug Use: None (LAURA JACKSON APRN) Adult General Chief Complaint Chief Complaint: MECHANICAL FALL HPI HPI Patient is a 45-year-old male who presents to the emergency department today stating that he fell over backwards while sitting in a park bench and hit his head and subsequently has bilateral ankle discomfort. Patient reports a 5/10 pain scale on a 1-10 pain scale on the back of the lower part of his head and upper part of his neck, patient states he did not lose consciousness, patient states he does not know why his ankles are sore, patient states that he is homeless and usually stays in a homeless custodial. Patient does deny any recent fever or chills, denies visual changes, he denies any loss of consciousness, he denies any nasal congestion cough or shortness of breath. Patient denies any chest pains or chest palpitations, any abdominal pain, nausea, vomiting, or diarrhea. Patient patient denies any recent depressions or anxieties. Denies homicidal suicidal ideation. Patient states that (LAURA JACKSON APRN) Review of Systems Review of Systems Constitutional: Denies fever or chills [] Eyes: Denies change in visual acuity, redness, or eye pain [] HENT: Denies nasal congestion or sore throat [] Respiratory: Denies cough or shortness of breath [] Cardiovascular: No additional information not addressed in HPI [] GI: Denies abdominal pain, nausea, vomiting, bloody stools or diarrhea [] : Denies dysuria or hematuria [] Musculoskeletal: Denies back pain or joint pain complains of pain to the lower part of the head and upper neck, also complains of bilateral ankle soreness without injury. Integument: Denies rash or skin lesions [] Neurologic: Denies headache, focal weakness or sensory changes [] Endocrine: Denies polyuria or polydipsia [] Psychiatric: Denies homicidal or suicidal ideations denies recent depressions or anxieties. All other systems were reviewed and found to be within normal limits, except as documented in this note. (LAURA JACKSON APRN) Current Medications Current Medications Patient states he is not on any medications at home, does not take any [id number] medications. (LAURA JACKSON APRN) Allergies Allergies Allergies Coded Allergies Type Severity Reaction Last Updated Verified No Known Allergies Allergy Unknown 06/09/20 Yes (LAURA JACKSON APRN) Physical Exam Physical Exam Constitutional: Well developed, well nourished, no acute distress, non-toxic appearance. [] HENT: Normocephalic, atraumatic, bilateral external ears normal, oropharynx moist, no oral exudates, nose normal. [] Eyes: PERRLA, EOMI, conjunctiva normal, no discharge. [] Neck: Normal range of motion, no tenderness, supple, no stridor. Full range of motion without meningismus signs symptoms, no pain elicited to the back of the head or neck upon palpation. Cardiovascular:Heart rate regular rhythm, no murmur [] Lungs & Thorax: Bilateral breath sounds clear to auscultation [] Abdomen: Bowel sounds normal, soft, no tenderness, no masses, no pulsatile masses. [] Skin: Warm, dry, no erythema, no rash. [] Back: No tenderness, no CVA tenderness. [] Extremities: No tenderness, no cyanosis, no clubbing, ROM intact, no edema. No swelling or deformity or signs and symptoms of infectious process to bilateral ankles, both posterior tibial and dorsalis pedis pulses 2+, distal cap refill less than 2 seconds, no loss of sensation, full AROM/PROM of bilateral ankles. Neurologic: Alert and oriented X 3, normal motor function, normal sensory function, no focal deficits noted. [] Psychologic: Affect normal, judgement normal, mood normal. [] (LAURA JACKSON APRN) Current Patient Data Vital Signs Vital Signs Date Time Temp Pulse Resp B/P (MAP) Pulse Ox O2 Delivery O2 Flow Rate FiO2 06/21/20 16:29 98.8 104 16 142/89 (106) 98 Room Air (LAURA JACKSON APRN) EKG EKG [] (LAURA JACKSON APRN) Radiology/Procedures Radiology/Procedures REASON: FALL, HEAD AND NECK PAIN PROCEDURE: CT HEAD AND CERVICAL SPINE WO CT brain without contrast, CT C-spine without contrast. HISTORY: Fall, head and neck pain CT brain CT scan of brain was done without contrast. There is mucosal thickening in the base of the frontal sinuses and in one or 2 anterior ethmoid air cells. Maxillary and sphenoid sinuses are clear. There is no skull fracture. There is no intracranial hemorrhage or subdural hematoma. Ventricles are normal in size. There is no mass or shift of the midline. IMPRESSION: 1. No intracranial hemorrhage or acute finding noted. End impression CT cervical spine Axial CT images were obtained through the cervical spine. Sagittal and coronal reconstructed images were reviewed. There is mild motion artifact. An acute fracture is not definitively identified. Subtle fracture could potentially be missed with the motion artifact. IMPRESSION: 1. Some limitations due to motion artifact. 2. No definite fracture PQRS Compliance Statement: One or more of the following individualized dose reduction techniques were utilized for this examination: 1. Automated exposure control 2. Adjustment of the mA and/or kV according to patient size 3. Use of iterative reconstruction technique Electronically signed by: Sukumar Lorenzo MD (06/21/2020 6:25 PM) [facility] DICTATED AND SIGNED BY: SUKUMAR LORENZO MD DATE: 06/21/201824 CC: LAURA JACKSON APRN; PCP,NO ~MTH0 0 (LAURA JACKSON APRN) Heart Score Risk Factors: Risk Factors: DM, Current or recent (<one month) smoker, HTN, HLP, family history of CAD, obesity. Risk Scores: Risk Factors: DM, Current or recent (<one month) smoker, HTN, HLP, family history of CAD, obesity. (LAURA JACKSON APRN) Course & Med Decision Making Course & Med Decision Making Pertinent Labs and Imaging studies reviewed. (See chart for details) 45-year-old male patient presents emergency department today complaining of head and neck pain after falling off a park bench, patient also complains of bilateral ankle soreness, patient states that he is homeless and has to walk for long periods of time, patient states he currently is staying at a local homeless custodial. Patient is requesting that he receive pain medicines and be released soon so that he can make it to the homeless custodial prior to them closing for the night as he does not want to sleep outside tonight in the cold. Related to the patient falling, and CAT scan of the head neck was done, x-rays of bilateral ankles were deferred has patient refused those x-rays and physical examination was unremarkable for acute injury. Patient was given 600 mg of Motrin for pain, CAT scan of the head neck was performed and read by house radio logist as negative for acute injury, and no intracranial process. Discussed findings with patient, diagnosis of fall, and bilateral ankle strains. Patient will be given a prescription for ibuprofen, patient was amenable to discharge planning, patient gave verbal understanding of scription medication use, return to ER concerns, patient had no further questions or concerns, patient discharged home without incident. Diagnosis of fall and bilateral ankle strains, this is unlikely an acute stroke, there is unlikely fracture of the neck or skull is related to house radiologist CAT scan interpretation, unlikely acute fracture of anklesrelated to no trauma, and unremarkable exam. (LAURA JACKSON APRN) Dragon Disclaimer Dragon Disclaimer This electronic medical record was generated, in whole or in part, using a voice recognition dictation system. (LAURA JACKSON APRN) Departure Departure: Impression: Primary Impression: Fall Additional Impression: Bilateral ankle pain Disposition: 01 DC HOME SELF CARE/HOMELESS Condition: GOOD Referrals: PCP,NO (PCP) Additional Instructions: Take prescribed medications as directed, return to the emergency department for worsening symptoms, see your doctor soon. Scripts Ibuprofen (IBUPROFEN) 600 Mg Tablet 600 MG PO PRN Q4-6HRS for PAIN, #10 TAB 0 Refills Prov: LAURA JACKSON APRN 06/21/20 Attending Co-Sign Attending Co-Sign The patient was seen and interviewed as well as examined at the bedside. The chart was reviewed. The case was discussed. Agree with the plan of care. (YANNICK RODRIGUEZ MD) Dragon Disclaimer This chart was dictated in whole or in part using Voice Recognition software in a busy, high-work load, and often noisy Emergency Department environment. It may contain unintended and wholly unrecognized errors or omissions. (YANNICK RODRIGUEZ MD) Problem Qualifiers Primary Impression: Fall Encounter type: initial encounter Qualified Codes: W19.XXXA - Unspecified fall, initial encounter Additional Impression: Bilateral ankle pain Chronicity: chronic Qualified Codes: M25.571 - Pain in right ankle and joints of right foot; M25.572 - Pain in left ankle and joints of left foot; G89.29 - Other chronic pain LAURA JACKSON APRN Jun 21, 2020 17:17 YANNICK RODRIGUEZ MD Jun 21, 2020 19:42
[2020-06-21] MEDS ORDERED: IBUPROFEN 600 MG TABLET. PO ONE (18:15)
--- NOTE | 2020-06-21 18:28 | RAD ---
CT brain without contrast, CT C-spine without contrast. HISTORY: Fall, head and neck pain CT brain CT scan of brain was done without contrast. There is mucosal thickening in the base of the frontal sinuses and in one or 2 anterior ethmoid air cells. Maxillary and sphenoid sinuses are clear. There is no skull fracture. There is no intracranial hemorrhage or subdural hematoma. Ventricles are normal in size. There is no mass or shift of the midline. IMPRESSION: 1. No intracranial hemorrhage or acute finding noted. End impression CT cervical spine Axial CT images were obtained through the cervical spine. Sagittal and coronal reconstructed images were reviewed. There is mild motion artifact. An acute fracture is not definitively identified. Subtle fracture could potentially be missed with the motion artifact. IMPRESSION: 1. Some limitations due to motion artifact. 2. No definite fracture PQRS Compliance Statement: One or more of the following individualized dose reduction techniques were utilized for this examination: 1. Automated exposure control 2. Adjustment of the mA and/or kV according to patient size 3. Use of iterative reconstruction technique Electronically signed by: Butch Golden MD (06/21/2020 6:25 PM) [facility]
[2020-06-21] MEDS ORDERED: IBUP600T16 PO (18:48)
[2020-06-21 19:12] VITALS: BP 121/63
== END 2020-06-21 19:11 | disposition home or self-care (01) ==
LOC: ER 16:26
DX: G89.11 Acute pain due to trauma (principal); M25.571 Pain in right ankle and joints of right foot; M25.572 Pain in left ankle and joints of left foot; M54.2 Cervicalgia; J44.9 Chronic obstructive pulmonary disease, unspecified; I25.2 Old myocardial infarction; F10.10 Alcohol abuse, uncomplicated; F17.210 Nicotine dependence, cigarettes, uncomplicated; W18.09XA Striking against other object with subsequent fall, initial encounter; Y93.89 Activity, other specified; Y92.89 Other specified places as the place of occurrence of the external cause; Y99.8 Other external cause status
CPT/HCPCS: 70450; 72125; 99285

== ENCOUNTER 2020-07-04 10:22 | Emergency (ER) | payer SELFPAY ==
[~2020-07-04] VITALS: Ht 182.9 cm; Wt 60.6 kg
[~2020-07-04 10:22] MED LIST changes: +IBUP600T16 PO
--- NOTE | 2020-07-04 10:38 | PHYS DOC ---
Past History Past Medical History: COPD, Seizure, Stroke Additional Past Medical Histor: cerebral hematoma, barrets esophagus, etoh abuse Past Surgical History: No Surgical History Smoking: Cigarettes Alcohol Use: Heavy Drug Use: None General Adult EDM: Chief Complaint: SEIZURE HPI: HPI: 45-year-old male past medical history of CVA (06/2020 @ [facility]) with residual blurry vision, alcohol dependence w/withdrawal seizures, mood disorder, insomnia and neuropathy, presents to the ED s/p unwitnessed seizure that lasted for approximately 3 minutes and resolved on its own, no associated urinary or bowel incontinence. Patient reports he had "two spots" in his brain that was bleeding earlier this month. Just got out of detox from alcohol. Not on any antiepileptic medication but is requesting his "seizure medication"-reports seizure he had a seizure and was recently admitted to another hospital and was started on seizure medications. Last alcoholic drink was prior to that admission. Has no pcp. Medications from dc papers from hospital reviewed (no diagnosis of cva listed)-pt on no antiepileptics, AC, is prescribed naltrexone. Review of Systems: Review of Systems: Constitutional: Denies fever or chills Eyes: Denies change in visual acuity HENT: Denies nasal congestion or sore throat Respiratory: Denies cough or shortness of breath Cardiovascular: Denies chest pain or edema GI: Denies abdominal pain, nausea, vomiting, bloody stools or diarrhea : Denies dysuria Musculoskeletal: Denies back pain or joint pain Integument: Denies rash Neurologic: Denies headache, focal weakness or sensory changes Endocrine: Denies polyuria or polydipsia Lymphatic: Denies swollen glands Psychiatric: Denies depression or anxiety Allergies: Allergies: Allergies Coded Allergies Type Severity Reaction Last Updated Verified No Known Allergies Allergy Unknown 06/09/20 Yes Physical Exam: PE: Constitutional: no acute distress, non-toxic appearance. HENT: Normocephalic, atraumatic, no tongue lacerations Eyes: EOMI, conjunctiva normal, no discharge. Neck: Normal range of motion, supple, Cardiovascular: S1/2 present, regular rhythm Lungs & Thorax: Speaking in full sentences, bilateral equal chest rise, no tachypnea or increased work of breathing Abdomen: soft, no tenderness, Skin: Warm, dry, no erythema, no rash. [] Back: No tenderness, no CVA tenderness. [] Extremities: No tenderness, no cyanosis, no edema Neurologic: Alert and oriented X 3-but slow to respond, GCS15, normal motor function, normal sensory function, no focal deficits noted. [] Psychologic: Affect normal, judgement normal, mood normal. [] Nexus C-spine criteria are negative: There is no post midline tenderness, the patient is not intoxicated, there is a normal level of alertness, there are no focal neurologic deficits and there are no distracting injuries. EKG: EKG: Sinus rhythm at 94 bpm, no axis deviation, normal intervals, no ST elevations or ST depressions or T wave inversions, no QTC prolongation Radiology/Procedures: Radiology/Procedures: []IMAGING REPORT Signed PATIENT: FRANK SALINAS ACCOUNT: [id number] : 1975 LOCATION: ER AGE: 45 SEX: M EXAM STATUS: REG ER ORD. PHYSICIAN: GELA GAGNON DO REASON: seizure, h/o ich PROCEDURE: CT HEAD WO CONTRAST Examination: CT HEAD/BRAIN WO History: Reason: seizure, h/o ich / Spl. Instructions: / History: Comparison/Correlation: 06/21/2020 CT head and cervical spine Findings: Axial images were obtained without contrast. Ventricles are normal size. No intracranial hemorrhage, midline shift or mass effect. Atrophy is present. Patchy opacification right ethmoid air cells noted. Bony structures are unremarkable. Impression: No suspicious process. PQRS Compliance Statement: One or more of the following individualized dose reduction techniques were utilized for this examination: 1. Automated exposure control 2. Adjustment of the mA and/or kV according to patient size 3. Use of iterative reconstruction technique Electronically signed by: Donny Alaniz MD (07/04/2020 11:05 AM) [id number] DICTATED AND SIGNED BY: DONNY ALANIZ MD DATE: 07/04/20 1102 CC: PCP,BARRETT; GELA GAGNON DO ~MTH0 0 Heart Score: Risk Factors: Risk Factors: DM, Current or recent (<one month) smoker, HTN, HLP, family history of CAD, obesity. Risk Scores: Score 0 - 3: 2.5% MACE over next 6 weeks - Discharge Home Score 4 - 6: 20.3% MACE over next 6 weeks - Admit for Clinical Observation Score 7 - 10: 72.7% MACE over next 6 weeks - Early Invasive Strategies Course & Med Decision Making: Course & Med Decision Making Pertinent Labs and Imaging studies reviewed. (See chart for details) CT the head unremarkable. Patient's medication list reviewed from [facility] discharge papers. Encourage compliance with his naltrexone for alcohol withdrawal. EKG with no QTC prolongation. Labs unremarkable. Drug screen positive for marijuana. No indication for antiepileptics at this time. Suspect possible withdrawal seizures and noncompliance with naltrexone. So seizure activity while in ed, GCS15. Strict ED return precautions were given for recurrent seizures, altered mental status or repeat head trauma. Encouraged urgent outpatient follow-up with PMD and neurology for seizure evaluation. Life-threatening processes were considered but are low suspicion at this time, given history and physical exam. Pt was educated on all prescription medications and adverse effects. All patient's questions were answered and pt was stable at time of discharge. Life/limb-threatening differential includes but is not limited to, intracranial hemorrhage, diffuse axonal injury, spinal cord syndrome, unstable cervical fracture or SCIWORA, fractures or joint dislocations, neurovascular injuries, organ injury or laceration, pneumothorax, pneumoperitoneum, pericardial tamponade, unstable pelvic fracture, compartment syndrome, flail chest or respiratory distress, burn injury or asphyxiation I spoken with the patient and her caregivers. I explained the patient's condition, diagnoses and treatment plan based on the information available to me at this time. I have answered the patient and her caregiver's questions and addressed any concerns. The patient and her caregivers have a good understanding of patient's diagnosis, condition and treatment plan as can be expected at this point. Vital signs have been stable. Patient's condition is stable and appropriate for discharge from the emergency department. Patient will pursue further outpatient evaluation with primary care physician or other designated or consulting physician as outlined in the discharge instructions. The patient and/or caregivers are agreeable to this plan of care and follow-up instructions have been explained in detail. The patient and/or caregivers have received these instructions in written form and have expressed an understanding of the discharge instructions. The patient and/or caregivers are aware that any significant change of condition or worsening of symptoms should prompt immediate return to this or the closest emergency department or call to 911. Rocío Disclaimer: Rocío Disclaimer: This electronic medical record was generated, in whole or in part, using a voice recognition dictation system. Departure Departure: Impression: Primary Impression: Seizure Additional Impressions: Alcohol abuse Marijuana abuse Disposition: 01 DC HOME SELF CARE/HOMELESS Condition: STABLE Referrals: PCP,NO (PCP) FOLLOW UP WITH FAMILY MEDICINE: Family Medicine Address: [address] [place] [address] Patient Instructions: Alcohol Withdrawal, Marijuana Abuse and Chemical Dependency, Seizure, Adult Additional Instructions: FOLLOW UP WITH NEUROLOGY: [facility] Address: [address] [place] [address] EMERGENCY DEPARTMENT GENERAL DISCHARGE INSTRUCTIONS Thank you for coming to [facility] Emergency Department (ED) today and trusting us with you care. We trust that you had a positivie experience in our Emergency Department. If you wish to speak to the department management, you may call the director at [phone]. YOUR FOLLOW UP INSTRUCTIONS ARE FOLLOWS: 1. Do you have a private Doctor? If you do not have a private doctor, please ask for a resource list of physicians or clinics that may be able to assist you with follow up care. 2. The Emergency Physician has interpreted your x-rays. The X-Ray specialist will also review them. If there is a change in the findings, you will be notified in 48 hours when at all possible. 3. A lab test or culture has been done, your results will be reviewed and you will be notified if you need a change in treatment. ADDITIONAL INSTRUCTIONS AND INFORMATION: 1. Your care today has been supervised by a physician who is specially trained in emergency care. Many problems require more than one evaluation for a complete diagnosis and treatment. We recommend that you schedule your follow up appointment as recommended to ensure complete treatment of you illness or injury. If you are unable to obtain follow up care and continue to have a problem, or if your condition worsens, we recommend that you return to the ED. 2. We are not able to safely determine your condition over the phone nor are we able to give sound medical advice over the phone. For these safety reasons, if you call for medical advice we will ask you to come to the ED for further evaluation. 3. If you have any questions regarding these discharge instructions please call the ED at [phone]. SAFETY INFORMATION: In the interest of safety, wellness, and injury prevention; we encourage you to wear your sealbelt, if you smoke; quite smoking, and we encourage family to use a protective helmet for bicycling and other sporting events that present an increased risk for head injury. IF YOUR SYMPTOMS WORSEN OR NEW SYMPTOMS DEVELOP, OR YOU HAVE CONCERNS ABOUT YOUR CONDITION; OR IF YOUR CONDITION WORSENS WHILE YOU ARE WAITING FOR YOUR FOLLOW UP APPOINTMENT; EITHER CONTACT YOUR PRIMARY CARE DOCTOR, THE PHYSICIAN WHOSE NAME AND NUMBER YOU WERE GIVEN, OR RETURN TO THE ED IMMEDIATELY. [facility]EL[facility] DO Jul 04, 2020 10:38
[2020-07-04] MEDS ORDERED: diazePAM 5 MG TABLET. PO ONE (10:45)
[2020-07-04 11:05] LABS: BASO # 0.1 x10^3/uL (0.0-0.2); BASO % 1 % (0-3); EOS # 0.2 x10^3/uL (0.0-0.7); EOS % 4 % (0-3); HEMOGLOBIN 14.5 g/dL (13.0-17.5); LYMPH % 18 % (24-48); MEAN CORPUSCULAR HEMOGLOBIN 35 pg (25-35); MEAN CORPUSCULAR HGB CONC 33 g/dL (31-37); MEAN CORPUSCULAR VOLUME 106 fL (79-100); MONO # 1.3 x10^3/uL (0.0-1.1); MONO % 23 % (0-9); NEUT % 55 % (31-73); PLATELET COUNT 143 x10^3/uL (140-400); RED BLOOD COUNT 4.16 x10^6/uL (4.30-5.70); RED CELL DISTRIBUTION WIDTH 16.2 % (11.5-14.5); WHITE BLOOD COUNT 5.6 x10^3/uL (4.0-11.0)
[2020-07-04 11:30] LABS: CALCIUM 9.1 mg/dL (8.5-10.1); CREATININE 0.7 mg/dL (0.7-1.3); GFR 123.1; POTASSIUM 4.4 mmol/L (3.5-5.1)
[2020-07-04 11:33] LABS: BARBITURATES NEG (NEG); BENZODIAZEPINES NEG (NEG); CANNABINOIDS POS (NEG); COCAINE NEG (NEG); METHADONE NEG (NEG); OPIATES NEG (NEG); PHENCYCLIDINE NEG (NEG)
[2020-07-04 11:35] LABS: AMPHETAMINE/METHAMPHETAMINE NEG (NEG)
[2020-07-04 11:56] VITALS: BP 119/90
--- NOTE | 2020-07-04 13:33 | EKG ---
[address] [address] Test Date: 2020-07-04 Test Time: 10:43:40 Pat Name: FRANK SALINAS Department: Room: Gender: M Spot Welder Line: WILBERTO : 1975 Requested By: GELA GAGNON Order Number: [id number] Reading MD: Measurements Intervals [place] Rate: 94 P: 66 DE: 146 QRS: 51 QRSD: 76 T: 62 QT: 328 QTc: 410 Interpretive Statements SINUS RHYTHM OTHERWISE NORMAL ECG RI6.02 No previous ECG available for comparison
--- NOTE | 2020-07-04 13:34 | RAD ---
Examination: CT HEAD/BRAIN WO History: Reason: seizure, h/o ich / Spl. Instructions: / History: Comparison/Correlation: 06/21/2020 CT head and cervical spine Findings: Axial images were obtained without contrast. Ventricles are normal size. No intracranial he morrhage, midline shift or mass effect. Atrophy is present. Patchy opacification right ethmoid air c ells noted. Bony structures are unremarkable. Impression: No suspicious process. PQRS Compliance Statement: One or more of the following individualized dose reduction techniques were utilized for this examinat ion: 1. Automated exposure control 2. Adjustment of the mA and/or kV according to patient size 3. Use of iterative reconstruction technique Electronically signed by: Donny Herbert MD (07/04/2020 11:05 AM) [email or web address]
== END 2020-07-04 14:05 | disposition home or self-care (01) ==
LOC: ER 10:22
DX: R56.9 Unspecified convulsions (principal); J44.9 Chronic obstructive pulmonary disease, unspecified; F12.10 Cannabis abuse, uncomplicated; F17.210 Nicotine dependence, cigarettes, uncomplicated; F10.20 Alcohol dependence, uncomplicated; Z86.73 Personal history of transient ischemic attack (TIA), and cerebral infarction without residual deficits; Y90.0 Blood alcohol level of less than 20 mg/100 ml
CPT/HCPCS: 36415; 70450; 80048; 80307; 82550; 85025; 93005; 99285